=== PATIENT | female | born 1950 | race Asian ===

== ENCOUNTER 2016-10-07 20:29 | Emergency (ER) | payer MEDICARE, OTHER ==
[2016-10-07] MEDS ORDERED: ASPIRIN CHEW 81 MG TABLET PO STA (20:43)
[2016-10-07] MEDS ORDERED: ASPIRIN CHEW 81 MG TABLET ONE (20:48)
[2016-10-07] MEDS ORDERED: IOPAMIDOL-300 100 ML VIAL IVP ONE (22:29)
== END 2016-10-08 00:43 | disposition home or self-care (01) ==
DX: R07.89 Other chest pain (principal); R16.0 Hepatomegaly, not elsewhere classified; Z85.3 Personal history of malignant neoplasm of breast; I10 Essential (primary) hypertension; E78.5 Hyperlipidemia, unspecified; E11.9 Type 2 diabetes mellitus without complications; Z79.84 Long term (current) use of oral hypoglycemic drugs; Z79.82 Long term (current) use of aspirin
CPT/HCPCS: 36415; 71020; 71275; 80053; 83690; 84484; 85025; 85379; 93005; 93010; 99284; A9270; Q9967

== ENCOUNTER 2016-11-06 07:37 | Outpatient (CLI) | payer MEDICARE, OTHER ==
[2016-11-06] MEDS ORDERED: GADOBUTROL 7.5 MMOL/7.5 ML VIAL IVP ONE (08:47)
--- NOTE | 2016-11-06 09:59 | MRI Report ---
EXAM: MRI BRAIN WITHOUT AND WITH CONTRAST EXAM DATE: 11/06/2016 08:06 AM. CLINICAL HISTORY: 66-year-old woman with headaches and history of breast cancer. COMPARISON: 04/01/2008. TECHNIQUE: Multiplanar, multisequence T1-weighted and fluid-sensitive MR sequences of the brain were performed. Sequences optimized for routine evaluation. Other: None. Without and with IV Contrast: 4 c c Gadavist. FINDINGS: Parenchyma: No evidence of acute infarct on diffusion weighted sequence. The parenchyma demonstrates moderate to severe burden of nonspecific hyperdense teasing the deep cerebral and eusebia-particular whi te matter, progressed compared to the 04/01/2008 exam and most consistent with sequelae of chronic sm all vessel ischemic disease. No evidence of prior hemorrhage on susceptibility weighted sequence. No abnormal enhancement. Pituitary: Unremarkable. Ventricles and Extra-axial Spaces: Ventricles are nearly symmetric and normal in size for age. Extra- axial spaces are unremarkable. No abnormal enhancement. Orbits: Unremarkable except for bilateral lens replaced in surgery. Sinuses: Mild scattered mucosal thickening is present in the paranasal sinuses and there is a promine nt mucous retention cyst in the right maxillary sinus. Mastoid air cells are clear. Major Vascular Flow Voids: Intact. Dural Venous Sinuses and Major Central Veins: Patent on post-contrast images. IMPRESSION: 1. No acute intracranial abnormality. Specifically, no evidence of acute infarct, hemorrhage, or mass lesion. No abnormal enhancement to suggest metastatic disease. 2. Moderate to severe white matter changes, progressed compared to the 04/01/2008 exam and most consi stent with sequelae of chronic small vessel ischemic disease. [facility] Referring Provider Line: [phone] SITE ID: [id number]
== END 2016-11-06 07:38 | disposition home or self-care (01) ==
LOC: DI 07:37
PROVIDERS: ATTEND Family Medicine
DX: R51 Headache (principal); R90.89 Other abnormal findings on diagnostic imaging of central nervous system
CPT/HCPCS: 70553; A9585

== ENCOUNTER 2016-11-06 07:38 | Outpatient (CLI) | payer MEDICARE, OTHER | END 2016-11-06 07:39 | disposition home or self-care (01) | LOC: DI 07:38 | PROVIDERS: ATTEND Family Medicine | DX: K76.9 Liver disease, unspecified (principal) ==

== ENCOUNTER 2016-11-21 15:40 | Outpatient (CLI) | payer MEDICARE, OTHER ==
[2016-11-21] MEDS ORDERED: GADOBUTROL 7.5 MMOL/7.5 ML VIAL IVP ONE (16:50)
--- NOTE | 2016-11-22 15:56 | MRI Report ---
EXAM: MR ABDOMEN WITH AND WITHOUT CONTRAST (MR LIVER) EXAM DATE: 11/21/2016 04:46 PM. CLINICAL HISTORY: Neoplasm of uncertain behavior of liver, gallbladder. COMPARISON: Limited imaging of upper abdomen on chest CTA 10/07/2016. TECHNIQUE: Multiplanar breath-hold T1, T2, and DWI sequences obtained through the abdomen on an [facility] mamta. Images obtained before and after administration of 4 mL Gadavist intravenous contrast. Multiph ase postcontrast images obtained of the liver and abdomen. FINDINGS: Lung Bases: Unremarkable. Liver: Diffuse fatty liver infiltration. Posterior right liver lobe segment 6 rim-enhancing mass measuring 5.6 x 5.4 cm. Central decreased si gnal intensity on postcontrast images may be from necrosis. No fat within the mass. Along posterior-most aspect of the dominant posterior right liver lobe mass and posterior right liver lobe contour are a couple of additional adjacent lesions measuring 1.2 cm and 0.6 cm in size. These smaller lesions could be satellite liver masses or adjacent peritoneal implants along posterior right liver contour. Tiny subcapsular cyst, inferior right liver lobe. Gallbladder: 1.5 cm dependent gallstone. No gallbladder wall thickening or adjacent edema. Pancreas: No main pancreatic ductal dilatation. Tiny 3 mm cystic focus within pancreatic tail on seri es 901 image 11. Suspect sidebranch IPMN. Spleen: The spleen appears normal. Kidneys and Adrenals: The kidneys appear normal with no suspicious mass or hydronephrosis. Tiny bilat eral simple renal cysts. The adrenals appear normal. Bowel: Diverticulosis. Small hiatal hernia. Retroperitoneum: The retroperitoneal structures appear normal with no mass or lymphadenopathy. IMPRESSION: 1. A 5.6 cm indeterminate posterior right liver lobe segment 6 mass with rim enhancement. Differentia l diagnosis includes metastatic disease, primary liver tumor and hepatic adenoma. Appearance is not t ypical for FNH or hemangioma. Patient has history of breast cancer, which could be a source for liver metastasis. Of note, there are 2 significantly smaller lesions posterior to this mass that could be from satellite nodules or adjacent peritoneal implants. Recommend abdominal pelvic CT with oral and I V contrast and consider right liver lobe mass biopsy. 2. Cholelithiasis. 3. Tiny 3 mm pancreatic tail cystic focus. Suspect sidebranch IPMN. Consider one-year follow-up MRCP/ MRI. 4. Diverticulosis. [facility] Referring Provider Line: [phone] SITE ID: [id number]
== END 2016-11-21 15:41 | disposition home or self-care (01) ==
LOC: DI 15:40
PROVIDERS: ATTEND Family Medicine
DX: D37.6 Neoplasm of uncertain behavior of liver, gallbladder and bile ducts (principal); K80.20 Calculus of gallbladder without cholecystitis without obstruction; K57.30 Diverticulosis of large intestine without perforation or abscess without bleeding; K86.2 Cyst of pancreas
CPT/HCPCS: 74183; A9585

== ENCOUNTER 2017-11-27 12:00 | Outpatient (CLI) | payer MEDICARE, OTHER ==
[~2017-11-27 12:00] MED LIST: GADOBUTROL 7.5 MMOL/7.5 ML VIAL ONE
[2017-11-27] MEDS ORDERED: GADOBUTROL 7.5 MMOL/7.5 ML VIAL IVP ONE (13:33)
--- NOTE | 2017-11-27 16:10 | MRI Report ---
Procedure Date: 11/27/2017 Accession Number: [id number] / [id number] Procedure: MRI - Brain W/WO CPT Code: FULL RESULT: EXAM: MRI BRAIN WITHOUT AND WITH CONTRAST EXAM DATE: 11/27/2017 01:41 PM. CLINICAL HISTORY: 67-year-old female with history of hepatic cancer. Headache. COMPARISON: MR brain 11/06/2016 TECHNIQUE: Multiplanar, multisequence T1-weighted and fluid-sensitive MR sequences of the brain were performed. Sequences optimized for routine evaluation. Other: None. IV Contrast: 5.5 mL Gadavist . FINDINGS: Brain Volume: Moderate diffuse cerebral volume loss with ex vacuo dilatation of the ventricles and sulci, slightly advanced for age. Parenchyma: No acute hemorrhage, mass, or infarct. Extensive, semi-confluent T2/FLAIR hyperintense periventricular, deep, and subcortical white matter lesions within cerebral hemispheres bilaterally and within the win centrally. This is overall similar to the prior study. No parenchymal foci susceptibility artifact. No abnormal enhancement. Ventricles/Cisterns: Mild to moderate ex vacuo dilatation. No hydrocephalus. No abnormal extra-axial fluid collection or hemorrhage. Orbits: Status post bilateral lens replacement surgery. The visualized orbits are otherwise unremarkable. Sella Turcica: The pituitary gland, cavernous sinuses, suprasellar cistern and optic chiasm are unremarkable. IAC: Symmetric and unremarkable. Vasculature: Normal signal flow void is seen in the major arterial structures at the skull base. The dural sinuses are patent and enhance normally. Sinuses: Moderate mucous retention cyst/polyp right maxillary sinus. The remaining paranasal sinuses are clear. Bones: No focal pathologic appearing marrow signal changes. Other: None. IMPRESSION: 1. No MRI evidence of acute intracranial abnormality. Specifically, no evidence of acute or subacute infarct, acute intracranial hemorrhage, mass, midline shift, or hydrocephalus. 2. No abnormal intracranial enhancement to suggest evidence for metastatic disease. 3. Moderate diffuse cerebral volume loss with ex vacuo dilatation of the ventricles and sulci, slightly advanced for age. 4. Extensive, semi-confluent T2/FLAIR hyperintense periventricular, deep, and subcortical white matter lesions within cerebral hemispheres bilaterally and within the win centrally. This is overall similar to the prior study. While nonspecific, this is favored to represent sequela of chronic microangiopathy. [facility]
== END 2017-11-27 12:01 | disposition home or self-care (01) ==
LOC: DI 12:00
PROVIDERS: ATTEND Family Medicine
DX: R51 Headache (principal); Z85.05 Personal history of malignant neoplasm of liver
CPT/HCPCS: 70553; A9585

== ENCOUNTER 2019-01-15 | Emergency (ER) | payer MEDICARE, OTHER | END 2019-01-15 19:29 | disposition home or self-care (01) | DX: R05 Cough (principal); I10 Essential (primary) hypertension; E11.9 Type 2 diabetes mellitus without complications; Z79.84 Long term (current) use of oral hypoglycemic drugs | CPT/HCPCS: 71046; 99283; A9270 ==

== ENCOUNTER 2019-06-22 12:53 | Emergency (ER) | payer MEDICARE, OTHER ==
--- NOTE | 2019-06-22 13:18 | ED Physician Documentation ---
History of Present Illness - Stated complaint Stated Complaint: COUGH - Chief complaint Chief Complaint: Resp - Additonal information Additional information: This is a 69-year-old female with history of hepatic cancer status post resection and ablation, who presents with a cough for 3 weeks. She began developing nasal congestion and cough 3 weeks ago, her cough is been persistent and she coughs up some yellow to greenish sputum occasionally. Her breathing feels okay and she denies chest pain. She has not had any hemoptysis. No fever. She is not on any chemotherapy. 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 HEENT: Cataracts - Present Medications Home Medications: Ambulatory Orders Medication Instructions Recorded Confirmed Amlodipine Besylate 10 mg PO DAILY 04/01/13 10/07/16 Metformin HCl [Glucophage Xr] 500 mg PO BID 04/01/13 10/07/16 Telmisartan/Hydrochlorothiazid 1 each PO DAILY 04/01/13 10/07/16 [Micardis Hct 80-12.5 mg Tablet] Aspirin 1 tab PO DAILY 10/07/16 10/07/16 Benzonatate [Tessalon Perle] 100 - 200 mg PO TID PRN #30 capsule 01/15/19 Codeine Sulfate 15 mg PO Q6H PRN #12 tablet 01/15/19 Acetaminophen 650 mg PO Q6HR #30 tablet 06/22/19 Benzonatate [Tessalon Perle] 100 - 200 mg PO TID PRN #30 capsule 06/22/19 - Allergies Allergies/Adverse Reactions: Allergies Allergy/AdvReac Type Severity Reaction Status Date / Time erythromycin base Allergy Severe Hives Verified 06/22/19 13:05 [Erythromycin Base] azithromycin AdvReac Dizziness Verified 06/22/19 13:05 IV contrast Allergy Unknown Uncoded 06/22/19 13:05 - Social History Does the pt smoke?: No Smoking Status: Never smoker Does the pt drink ETOH?: No Does the pt have substance abuse?: No - Immunizations Immunizations are current?: Yes - POLST Patient has POLST: No PD ED PE NORMAL - Vitals Vital signs reviewed: Yes - General General: Alert and oriented X 3, No acute distress - HEENT HEENT: Other (Mild rhinorrhea, mild posterior pharynx erythema without edema or exudate) - Neck Neck: Supple, no meningeal sign - Cardiac Cardiac: RRR, No murmur - Respiratory Respiratory: No respiratory distress, Clear bilaterally, Other - Abdomen Abdomen: Soft, Non tender, Non distended - Derm Derm: Warm and dry - Extremities Extremities: No deformity - Neuro Neuro: Alert and oriented X 3 - Psych Psych: Normal mood, Normal affect Results - Vitals Vitals: Vital Signs - 24 hr 06/22/19 06/22/19 13:00 14:50 Temperature 37.7 C H 37.3 C Heart Rate 85 76 Respiratory 24 20 Rate Blood Pressure 161/83 H 173/90 H O2 Saturation 99 96 Oxygen O2 Source Room air - Rads (name of study) Chest XR Radiology: Other (No acute infiltrate or abnormality, possible right hilar mild adenopathy or fullness.) PD MEDICAL DECISION MAKING - ED course ED course: DDX: URI, bronchitis, pneumonia, metastasis, allergies, pleural effusion Patient is well-appearing with unremarkable vital signs oxygen saturation is normal, and overall her symptoms are consistent with upper respiratory infection, however given the presence of her cough, chest x-ray was ordered and this shows no acute pulmonary abnormality, there is a suggestion of some right hilar fullness. I reexamined patient who continues to feel well with unremarkable vital signs. I discussed that I believe she has a upper respiratory infection and I discussed supportive care for this. I do not think she will benefit from antibiotics at this time. She has no chest pain or shortness of breath to suggest cardiac cause. No signs of HF. I also reviewed her x-ray, including the fact that there is possible right hilar fullness which should be followed up with by her primary care provider or oncologist, and she may need imaging to further evlauate this. I also discussed if she has fever, shortness of breath or other concerning symptoms she should return to the emergency department. Patient agrees and was discharged home in care of her family. Departure - Departure Disposition: Home, Self Care Clinical Impression: Cough Condition: Good Instructions: ED Viral Syndrome Prescriptions: Acetaminophen 650 mg PO Q6HR #30 tablet Benzonatate [Tessalon Perle] 100 - 200 mg PO TID PRN #30 capsule PRN Reason: Cough Comments: You were seen today for cough. This is likely a viral illness/viral bronchitis, I am prescribing you Tessalon Perles for the cough. Your x-ray showed potential mild enlargement of your hilum of your heart, which is likely unrelated to your cough, but please follow-up with your primary care provider and your oncologist to determine if further imaging is necessary. If you are developing worsening symptoms such as difficulty breathing, coughing up blood, chest pain, please return to the emergency department. Discharge Date/Time: 06/22/19 14:58
--- NOTE | 2019-06-22 14:18 | XRAY Report ---
Reason: cough x 3 weeks Procedure Date: 06/22/2019 Accession Number: [id number] / [id number] Procedure: XR - Chest 2 View X-Ray CPT Code: 12750 Final Report FULL RESULT: EXAM: CHEST RADIOGRAPHY EXAM DATE: 06/22/2019 01:46 PM. CLINICAL HISTORY: Cough x 3 weeks. COMPARISON: CHEST 2 VIEW 01/15/2019 6:47 PM CHEST ANGIO 10/07/2016 10:28 PM. TECHNIQUE: 2 views. FINDINGS: Lungs/Pleura: No focal opacities evident. No pleural effusion. No pneumothorax. Normal volumes. Mediastinum: Ectatic thoracic aorta. Atheromatous disease is noted in the thoracic aorta. No cardiac enlargement. Possible mild prominence of the right hilum. Other: Postoperative changes are seen in the right upper quadrant of the abdomen. IMPRESSION: 1. No cardiac enlargement. Possible mild right hilar enlargement. Findings could be confirmed with CT with contrast to exclude adenopathy. 2. No acute pulmonary process. [facility]
[2019-06-22 14:51] VITALS: BP 173/90
== END 2019-06-22 14:58 | disposition home or self-care (01) ==
LOC: ED 12:53
DX: R05 Cough (principal); I10 Essential (primary) hypertension; E11.9 Type 2 diabetes mellitus without complications; Z79.84 Long term (current) use of oral hypoglycemic drugs
CPT/HCPCS: 71046; 99283

== ENCOUNTER 2019-07-17 17:07 | Emergency (ER) | payer MEDICARE, OTHER ==
--- NOTE | 2019-07-17 17:37 | ED Physician Documentation ---
PD HPI URI - Stated complaint Stated Complaint: COUGH/PFLEGM - Chief complaint Chief Complaint: Resp - History obtained from History obtained from: Patient - History of Present Illness Timing - onset: How many weeks ago (3) Timing duration: Weeks (3) Timing details: Gradual onset, Still present Associated symptoms: Sinus pain, Dry cough, Dyspnea. No: Fever, Nasal congestion, Rhinorrhea, Chest pain, Bilateral edema Contributing factors: No: Sick contact, COPD / asthma Recently seen: Clinic, Emergency Dept (Was prescribed Tessalon for the cough initially early on in the course of this. She then was seen in the office and had steroid dosing for 5 days with some improvement but not persistent or consistent. The symptoms are back again.) Review of Systems Constitutional: reports: Myalgias, Fatigue. denies: Fever, Chills Nose: reports: Sinus pressure / pain. denies: Rhinorrhea / runny nose, Congestion Throat: denies: Sore throat Respiratory: reports: Dyspnea, Cough, Wheezing GI: denies: Nausea, Vomiting, Diarrhea Musculoskeletal: denies: Neck pain, Back pain, Extremity swelling Neurologic: denies: Near syncope, Altered mental status PD PAST MEDICAL HISTORY - Past Medical History Past Medical History: Yes Cardiovascular: Hypertension, High cholesterol Respiratory: None Endocrine/Autoimmune: Type 2 diabetes GI: Other : None Psych: None Musculoskeletal: None Derm: None Other Past Medical History: liver cancer - Past Surgical History Past Surgical History: Yes 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 HEENT: Cataracts - Present Medications Home Medications: Ambulatory Orders Medication Instructions Recorded Confirmed Amlodipine Besylate 10 mg PO DAILY 04/01/13 10/07/16 Telmisartan/Hydrochlorothiazid 1 each PO DAILY 04/01/13 10/07/16 [Micardis Hct 80-12.5 mg Tablet] Aspirin 1 tab PO DAILY 10/07/16 10/07/16 Acetaminophen 650 mg PO Q6HR #30 tablet 06/22/19 Albuterol Sulfate [Albuterol 2 puffs IH QID #1 hfa.aer.ad 07/17/19 Sulfate Hfa] Doxycycline Monohydrate 100 mg PO BID #14 tablet 07/17/19 Latanoprost [Xalatan] 2.5 ml OP 07/17/19 dexAMETHasone [Decadron] 4 mg PO DAILY #5 tablet 07/17/19 guaiFENesin/CODEINE [Robitussin AC] 10 ml PO Q6H PRN #240 ml 07/17/19 - Allergies Allergies/Adverse Reactions: Allergies Allergy/AdvReac Type Severity Reaction Status Date / Time erythromycin base Allergy Severe Hives Verified 06/22/19 13:05 [Erythromycin Base] azithromycin AdvReac Dizziness Verified 06/22/19 13:05 IV contrast Allergy Unknown Uncoded 06/22/19 13:05 - Social History Does the pt smoke?: No Smoking Status: Never smoker Does the pt drink ETOH?: No Does the pt have substance abuse?: No - Immunizations Immunizations are current?: Yes - POLST Patient has POLST: No PD ED PE NORMAL - Vitals Vital signs reviewed: Yes - General General: Alert and oriented X 3, No acute distress, Well developed/nourished - HEENT HEENT: Moist mucous membranes, Pharynx benign - Neck Neck: Supple, no meningeal sign, No adenopathy - Cardiac Cardiac: RRR, No murmur - Respiratory Respiratory: No: Clear bilaterally (diminished sounds with scattered exp wheezes. ) - Abdomen Abdomen: Soft, Non tender - Derm Derm: Normal color, Warm and dry Results - Vitals Vitals: Vital Signs - 24 hr 07/17/19 07/17/19 07/17/19 17:19 18:18 19:01 Temperature 37.6 C H Heart Rate 88 90 97 Respiratory 18 16 18 Rate Blood Pressure 151/102 H 170/79 H O2 Saturation 94 94 Oxygen O2 Source Room air - Rads (name of study) chest xray Radiology: Prelim report reviewed (no infiltates), See rad report PD MEDICAL DECISION MAKING - ED course Complexity details: considered differential (Persistent cough for a few weeks now despite Tessalon and steroid. At this point consider bacterial cause instead and can do combination of steroid antibiotic inhaler and cough syrup.), d/w patient Departure - Departure Disposition: 01 Home, Self Care Clinical Impression: Persistent cough Upper respiratory tract infection Qualifiers: URI type: unspecified URI Qualified Code(s): J06.9 - Acute upper respiratory infection, unspecified Condition: Stable Record reviewed to determine appropriate education?: Yes Instructions: ED Upper Resp Infec Abx Tx Prescriptions: Albuterol Sulfate [Albuterol Sulfate Hfa] 2 puffs IH QID #1 hfa.aer.ad dexAMETHasone [Decadron] 4 mg PO DAILY #5 tablet Doxycycline Monohydrate 100 mg PO BID #14 tablet guaiFENesin/CODEINE [Robitussin AC] 10 ml PO Q6H PRN #240 ml PRN Reason: Cough Comments: Stay well-hydrated. Continue usual medications. Use the albuterol inhaler 2 puffs 4 times a day for the next 7 to 10 days to help open the airways and improve breathing and reduce cough. Decadron steroid at just a single tablet daily for 5 more days. Use the codeine cough medicine if needed for cough at night particularly and through the day as needed as well. At this point given the duration of the cough and symptoms, I would consider the possibility of bacterial infection rather than just viral and we can add an antibiotic to see if that helps in combination with the above medicines. Recheck if not improving well over the next 3 to 4 days. Discharge Date/Time: 07/17/19 19:01
[2019-07-17] MEDS ORDERED: ALBUTEROL NEB 2.5 MG/3 ML INH STA (17:54)
[2019-07-17] MEDS ORDERED: CHERRY SYRUP 10 ML UDC PO ONE (17:55)
[2019-07-17] MEDS ORDERED: DEXAMETHASONE 10 MG/ML VIAL PO STA (17:55)
[2019-07-17] MEDS ORDERED: DOXYCYCLINE 100 MG TABLET PO STA (17:55)
[2019-07-17] MEDS ORDERED: guaiFENesin/CODEINE 5 ML UDC PO STA (17:55)
--- NOTE | 2019-07-17 18:49 | XRAY Report ---
Reason: dyspnea/ cough Procedure Date: 07/17/2019 Accession Number: [id number] / [id number] Procedure: XR - Chest 2 View X-Ray CPT Code: 01333 Final Report FULL RESULT: EXAM: CHEST RADIOGRAPHY EXAM DATE: 07/17/2019 06:09 PM. CLINICAL HISTORY: Dyspnea/ cough. COMPARISON: CHEST 2 VIEW 06/22/2019 1:45 PM. TECHNIQUE: 2 views. FINDINGS: Lungs/Pleura: No focal opacities evident. No pleural effusion. No pneumothorax. Normal volumes. Mediastinum: The heart size is normal. There is moderate tortuosity of the thoracic aorta. Trachea is midline. Other: None. IMPRESSION: Clear lungs. Tortuous aorta. [facility]
[2019-07-17 19:02] VITALS: BP 170/79
== END 2019-07-17 19:01 | disposition home or self-care (01) ==
LOC: ED 17:07
DX: J06.9 Acute upper respiratory infection, unspecified (principal); R05 Cough; I10 Essential (primary) hypertension; E11.9 Type 2 diabetes mellitus without complications; Z79.82 Long term (current) use of aspirin
CPT/HCPCS: 71046; 94640; 99283; 99284; A9270

== ENCOUNTER 2020-04-22 13:08 | Outpatient (CLI) | payer MEDICARE, OTHER ==
[2020-04-22 13:19] LABS: BILIRUBIN,URINE NEGATIVE (NEGATIVE); GLUCOSE, URINE (UA) NEGATIVE (NEGATIVE); KETONES,URINE (UA) NEGATIVE (NEGATIVE); LEUKOCYTE ESTERASE, URINE MODERATE (NEGATIVE); NITRITE,URINE NEGATIVE (NEGATIVE); OCCULT BLOOD,URINE LARGE (NEGATIVE); PH,URINE 6.5 PH (5.0-7.5); PROTEIN,URINE TRACE mg/dL (NEGATIVE); UROBILINOGEN,URINE 0.2 (NORMAL) E.U./dL (NORMAL)
[2020-04-22 13:20] LABS: CLARITY,URINE CLEAR (CLEAR)
[2020-04-22 13:25] LABS: SQUAMOUS EPITHELIAL CELL,UR FEW Squamous (<= Few)
[2020-04-22 13:26] LABS: BACTERIA,URINE Few /HPF (None Seen)
== END 2020-04-22 13:09 | disposition home or self-care (01) ==
LOC: LAB 13:08
PROVIDERS: ATTEND Urology
DX: R30.0 Dysuria (principal)
CPT/HCPCS: 81001; 87086

== ENCOUNTER 2020-06-29 13:00 | Outpatient (CLI) | payer MEDICARE, OTHER ==
--- NOTE | 2020-06-29 18:10 | CONSULTATION NOTE ---
Palliative Care Consultation - Referral Referring Provider: Dr. Nolvia Reid Time of Visit: [id number] Referral setting: Home Referral Reason: Met uterine sarcoma/hepatocellular CA/FTT - Information Sources Records reviewed: Previous records reviewed History/Review of Systems obtained from: Patient, Family ( Neptali and daughter Ena present for visit) Exam limitations: No limitations - History of Present Illness Brief History of Present Illness: This is a klaus 70-year-old woman with known metastatic uterine sarcoma, as well as progressive hepatocellular carcinoma, history of breast cancer, who was most recently discharged from the [facility]. Patient does have a known diagnosis of hepatocellular carcinoma which was treated originally with laparoscopic partial right hip ectomy and radiofrequency ablation in 2016, but was found to have recurrent disease in 2019 as well as a large 11.6 cm uterine mass. She received atezolizumab for her metastatic HCC, and surgical intervention in which included a exploratory lap, modified radical hysterectomy, BSO, radical right pelvic dissection, tumor cytoreduction, and right utero neocystostomy. She had a difficult postop course, with recurrent UTIs, progressive functional decline, and eventually found to have progression of her disease in the pelvis as well as metastatic disease to her lungs. Patient received her first dose of chemotherapy, on 06/08. She did experience severe side effects, including fever, sore throat, fatigue, and mucositis. She was admitted for neutropenic fever in the setting of failure to thrive on 06/17. Patient found this quite a distressful hospitalization, given the pandemic, was not allowed to have her family with her, she had severe pain related to mucositis, she continued to deteriorate functionally, and was unable to eat. She was discharged home, there had been questions regarding goals of care. She had met with the palliative care team, they had introduced the concept of hospice, as well as the information most likely her treatment would only extend her prognosis about 3 months. Patient is found this quite a distressful experience, and her goals that she expressed several times through our visit, which she wanted to be at home with her family, understand she has stage IV disease, and no further treatment. She has continued to improve, she is able to ambulate short distances, though still continues with severe fatigue. She reports she is about "20%" better, she has been eating and drinking some, her pain has resolved. Her mucositis she only has 1 residual lesion on the underside of her right tongue, that does appear to be healing. 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: Breast cancer (tx with masectomy and tamoxifen) : reports: None Psych: reports: None Musculoskeletal: reports: None Derm: reports: None MRSA Hx?: No - Past Surgical History General: reports: Liver surgery /ELECTRICAL TRANSMISSION ENGINEER: reports: Hysterectomy, Oophrectomy, Mastectomy, Other (04/12/20 ex lap modified rad hyst, BSO; right pelvic dissection; ureteronecocystotomy; 06/06 progressive pelvic dx with pulmonary nodules) HEENT: reports: Cataracts Social History - Living Situation Living arrangement: At home Living Situation: With spouse/s.o., With family (Patient and family are Buddhist, her dinesh is very important to her. Though has not had access to it given the pandemic. She and her live in [place], she moved to [facility] in [facility] to [place] where her was originally stationed. She is originally from the [facility].) Support System: Her daughter Ena who is participating in the appointment, has been living with them since March with her since her surgery. She is helped advocate and manage for her mom's care needs, as well as help interpret a lot of the medical information. She is well versed in patient's history as well as patient's appointment/conversations, options. They also have a son, who is in [place], they have found it quite difficult with the pandemic as he is not been able to come visit. Family History - Family History Family History: Mother: , Hypertension, Father: , Hypertension, Other family: Alive and Well (many siblings no cancer) Medications/Allergies - Medications Home Medications: Ambulatory Orders Medication Instructions Recorded Confirmed Amlodipine Besylate 10 mg PO DAILY 04/01/13 07/01/20 Telmisartan/Hydrochlorothiazid 1 each PO DAILY 04/01/13 07/01/20 [Micardis Hct 80-12.5 mg Tablet] Acetaminophen 650 mg PO Q6HR #30 tablet 06/22/19 07/01/20 Albuterol Sulfate [Albuterol 2 puffs IH QID #1 hfa.aer.ad 07/17/19 07/01/20 Sulfate Hfa] Latanoprost [Xalatan] 2.5 ml OP DAILY 07/17/19 07/01/20 Sitagliptin Phosphate [Januvia] 50 mg PO DAILY 07/01/20 07/01/20 - Allergies Allergies/Adverse Reactions: Allergies Allergy/AdvReac Type Severity Reaction Status Date / Time erythromycin base Allergy Severe Hives Verified 06/22/19 13:05 [Erythromycin Base] azithromycin AdvReac Dizziness Verified 06/22/19 13:05 IV contrast Allergy Unknown Uncoded 06/22/19 13:05 Review of Systems - Constitutional Constitutional: reports: Fatigue (continues persistent but slowly improving), Poor appetite, Weight loss (had been at baseline about 120; now 92) - Ears, Nose & Throat Ears, Nose & Throat: reports: Mouth lesions (healing) - Cardiovascular Cardiovascular: reports: Decr. exercise tolerance - Respiratory Respiratory: reports: SOB with exertion. denies: SOB at rest - Gastrointestinal Gastrointestinal: reports: Early satiety. denies: Abdominal pain, Constipation, Nausea - Genitourinary Genitourinary: denies: Dysuria - Musculoskeletal Musculoskeletal: reports: Stiffness, Muscle weakness - Integumentary Integumentary: reports: Dryness - Neurological Neurological: reports: General weakness - Psychiatric Psychiatric: reports: Depression (expressing appropriate sadness/grief of current situation; does not present with hopelessness/helplessness) - Endocrine Endocrine: reports: Diabetes type 2 (does not check BS) - Hematologic/Lymphatic Hematologic/Lymph: Recurrent infections (hx of UTIs) - All Other Systems All Other Systems: reports: Reviewed and negative Physical Exam - Vital Signs Pulse Rate: 106 Respiratory Rate: 16 O2 Saturation: 97 (ra @ rest) Blood Pressure: 102/62 - Physical Exam General Appearance: positive: No acute distress, Alert Eyes Bilateral: positive: Normal inspection ENT: positive: Oral lesions (healing lesion underside right tongue; no candidiasis) Neck: positive: Trachea midline Cardiovascular: positive: Regular rate & rhythm Respiratory: positive: No respiratory distress, Breath sounds nml, Diminished in bases Abdomen: positive: Non-tender, Soft, Nml bowel sounds Skin: positive: Dryness Extremities: positive: No pedal edema Neurologic/Psychiatric: positive: Oriented x3, Mood/affect nml, Weakness Palliative Care - POLST Patient has POLST: Yes POLST Status: DNR, Selective Treatment (completed at visit) Pain: No pain, Pain improved, Location (has been left lower quadrant; resolved after tx in Dec) Tiredness/Fatigue: Moderate (4-6) Drowsiness/Sedation: Moderate (4-6) Nausea: None Anorexia: Moderate (4-6), Weight loss Dyspnea: Mild (1-3) Depression: Mild (1-3) Anxiety: Mild (1-3) Feelings of wellbeing/Perceived Quality of Life: Fair, Acceptable Sleep: Sleep improved, Variable sleep pattern Constipation: No Performance Status: Patient is ambulatory for short distances, her does help her with bathing. She is able to self feed. I would put her at a PPS of 60% - Palliative Care Discussion: Family meeting regarding goals of care. This is a long and extensive that involved multiple layers of communication. Patient expresses her desire to not return to the hospital, just to be at home with her family. No further treatment. She does understand she has stage IV disease, and that she would continue to decline and would lead to her end-of-life. Patient did have a misunderstanding regarding hospice, had understood it was a "place". After much discussion regarding the layer of support hospice provides, she would be open to this. She was very overwhelmed by her hospitalization, and not being able to be present with her family, does not want to return to the hospital. Her Neptali, does express many layers of suffering. He very much wants her to continue treatment, his perception is her pain got better, and that she was just sick because of the chemo. He does not want to give up, though does understand that his 's wishes are to be at home and focus on comfort with him. He is willing to be supportive, but finds this all very difficult emotionally. Their daughter Ena, his been a good advocate, very much wants to align with her mother's focus for quality of life, though is still ambivalent regarding if there were further treatments that could be modified that she could tolerate, she does find hospice difficult, in the context she is often going to the ER for symptom management. We discussed this would be of great support for her to have the hospice team to be able to help manage some of the symptoms, and avoid hospitalization/ED. She does feel if patient is feeling better, it may warrant another conversation. We did fill out the POLST. Patient is consistent with her wishes for DN AR, after much discussion, did pick selective treatments, as patient/family would like after much discussion follow-up with Dr. Reid. Educated on the role of palliative care which could come continue if she wanted to do further palliative treatments, though recognizing again sometimes the treatment causes more burden than benefit, but they may feel more at rest in their decision having had another conversation now she is not hospitalized. Impression and Recommendations - Palliative Care Impression: This is a 70-year-old woman who has had a series of unfortunate events over the few months, she presented with recurrent hepatocellular carcinoma, with now rec urrent uterine sarcoma. She has had a recent hospitalization for acute neutropenia and mucositis. She is recovering some, with some improvement in functional status, remains quite cachectic, but is doing better with intake. She does not present with high symptom burden, but there is still significant concerns regarding defining goals of care. Palliative care providing support for symptom management, clarification of goals, and transition to hospice when appropriate. Recommendations/Counseling Done: 1. Mucositis. Patient presents with almost resolution of her mucositis, still has residual lesion. Reinforced their current practice of doing a normal saline/baking soda rinse, patient does not have any pain at this point in time, does not need further than Magic mouthwash. 2. Weight loss. Patient is doing better with her intake, encouraged to increase her Ensure if possible from 2-3 times a day. They are providing small frequent meals, patient does feel like she is doing better with this. We will continue to monitor. At this point in time patient is not on appetite stimulant. Will monitor for appropriateness. 3. Recurrent uterine sarcoma. Patient tolerated first round of doxorubicin with significant side effects, and hospitalization. Patient is somewhat treatment adverse at this point in time, counseling provided regarding weighing benefits and burdens of treatments in the context of quality/quantity of life. In agreement end of conversation, would benefit from further follow-up and conversation with Dr. Reid. Reached out for follow-up appointment, Dr. Reid will follow up and family court counsellor with family. 4. Advanced care planning. Counseling provided regarding hospice services, clarifications or understanding regarding what this would include. Provided daughter with "hard choices for loving people", she does struggle in the context of patient's future end-of-life and demise. is emotionally distraught, did offer medical palliative care social security assessor and/or medical radiation therapist, declined for this time. Will follow up after appointment with oncology, for further definition of goals, if focuses on comfort, would benefit from hospice support and transition earlier than later. Time Spent: 90 minutes with greater than 50% of this done in counseling regarding symptom management, anticipatory guidance, completion of the POLST, coordination of care with oncology team.
--- OUTSIDE RECORDS SUMMARY | 2020-06-30 04:53 | EXTERNAL MEDICAL SUMMARY RPT | Continuity of Care Document ---
:1950 Demographics Phone Unavailable Preferred Language Unknown Marital Status Unknown Rastafari Affiliation Unknown Race Unknown Ethnic Group Unknown Author Organization Kim Address [address] [phone] Phone Care Team Providers Name Role Phone SONE Unavailable Unavailable Weiss Unavailable Unavailable Problems date description facility 2013-04-02 08:45 DIAB STORM WO COMPL, TYPE II OR [facility] UNSPEC TYPE, NOT UNCNTRLD 2013-04-02 08:45 SENILE CATARACT NOS [facility] 2013-04-02 08:45 HYPERTENSION NOS [facility] 2013-04-02 08:45 HX OF BREAST MALIGNANCY [facility] 2013-04-02 08:[address] [facility] 2013-04-23 09:18 SENILE CATARACT NOS [facility] 2013-04-23 09:18 HX-ANTIBIOT ALLERGY NEC [facility] 2015-12-23 13:30 TYPE 2 DIABETES MELLITUS WITH [facility] HYPERGLYCEMIA 2015-12-23 13:30 HYPOKALEMIA [facility] 2015-12-23 13:30 ESSENTIAL (PRIMARY) HYPERTENSION [facility] 2015-12-23 13:30 OTHER CHEST PAIN [facility] 2015-12-23 13:30 ABNORMAL ELECTROCARDIOGRAM [ECG] [facility] [EKG] 2015-12-23 13:30 UNDERDOSING OF INSULIN AND ORAL [facility] HYPOGLYCEMIC DRUGS, INIT 2015-12-23 13:30 SALES OPERATIONS COORDINATOR (CURRENT) USE OF ASPIRIN [facility] 2015-12-23 13:30 OTHER SALES OPERATIONS COORDINATOR (CURRENT) DRUG [facility] THERAPY 2015-12-23 13:30 PERSONAL HISTORY OF MALIGNANT [facility] NEOPLASM OF BREAST 2015-12-23 13:30 ACQUIRED ABSENCE OF LEFT BREAST [facility] AND NIPPLE 2015-12-23 13:30 PATIENT'S INTENTL UNDRDOSE OF MEDS [facility] REGIMEN FOR OTH REASON 2016-02-03 06:43 TYPE [address] [facility] COMPLICATIONS 2016-02-03 06:43 HYPERLIPIDEMIA, UNSPECIFIED [facility] 2016-02-03 06:43 ESSENTIAL (PRIMARY) HYPERTENSION [facility] 2016-02-03 06:43 OTHER CHEST PAIN [facility] 2016-10-07 20:29 TYPE 2 DIABETES [address] WITHOUT [facility] COMPLICATIONS 2016-10-07 20:29 HYPERLIPIDEMIA, UNSPECIFIED [facility] 2016-10-07 20:29 ESSENTIAL (PRIMARY) HYPERTENSION [facility] 2016-10-07 20:29 OTHER CHEST PAIN [facility] 2016-10-07 20:29 HEPATOMEGALY, NOT ELSEWHERE [facility] CLASSIFIED 2016-10-07 20:29 SALES OPERATIONS COORDINATOR (CURRENT) USE OF ASPIRIN [facility] 2016-10-07 20:29 SALES OPERATIONS COORDINATOR (CURRENT) USE OF ORAL [facility] HYPOGLYCEMIC DRUGS 2016-10-07 20:29 PERSONAL HISTORY OF MALIGNANT [facility] NEOPLASM OF BREAST 2016-11-06 07:37 HEADACHE [facility] 2016-11-06 07:37 OTH ABNORMAL FINDINGS ON [facility] DIAGNOSTIC IMAGING OF CNSL 2016-11-06 07:38 LIVER DISEASE, UNSPECIFIED [facility] 2016-11-21 15:40 NEOPLASM OF UNCERTAIN BEHAVIOR OF [facility] LIVER, GB BILE DUCT 2016-11-21 15:40 DVRTCLOS OF LG INT W/O PERFORATION [facility] OR ABSCESS W/O BLEEDING 2016-11-21 15:40 CALCULUS OF GALLBLADDER W/O [facility] CHOLECYSTITIS W/O OBSTRUCTION 2016-11-21 15:40 CYST OF PANCREAS [facility] 2017-11-27 12:00 HEADACHE [facility] 2017-11-27 12:00 PERSONAL HISTORY OF MALIGNANT [facility] NEOPLASM OF LIVER 2019-01-15 18:02 TYPE [address] DIABET[address] [facility] COMPLICATIONS 2019-01-15 18:02 ESSENTIAL (PRIMARY) HYPERTENSION [facility] 2019-01-15 18:02 COUGH [facility] [place] 2019-01-15 18:02 MCC (CURRENT) USE OF ORAL [facility] HYPOGLYCEMIC DRUGS 2019-06-22 12:53 TYPE 2 DIABETES MELLITUS WITHOUT [facility] COMPLICATIONS 2019-06-22 12:53 ESSENTIAL (PRIMARY) HYPERTENSION [facility] 2019-06-22 12:53 COUGH [facility] Medic [facility] 2019-06-22 12:53 SALES OPERATIONS COORDINATOR (CURRENT) USE OF ORAL [facility] HYPOGLYCEMIC DRUGS 2019-07-17 17:07 TYPE 2 DIABETES MELLITUS WITHOUT [facility] COMPLICATIONS 2019-07-17 17:07 ESSENTIAL (PRIMARY) HYPERTENSION [facility] 2019-07-17 17:07 ACUTE UPPER RESPIRATORY INFECTION, [facility] UNSPECIFIED 2019-07-17 17:07 COUGH [facility] 2019-07-17 17:07 SALES OPERATIONS COORDINATOR (CURRENT) USE OF ASPIRIN [facility] 2020-04-12 05:07 Malignant neoplasm of endometrium [facility] 2020-04-22 13:08 DYSURIA [facility] Medic [facility] Allergies date description facility [facility] LISINOPRIL [facility] LOSARTAN [facility] [place] SULFAMETHOXAZOLE-TRIMETHOPRIM [facility] VANCOMYCIN [facility] [place] HYDROCODONE-ACETAMINOPHEN [facility] CODEINE-GUAIFENESIN [facility]IN [facility] MOR[facility]INE [facility] No Known Drug Allergies [facility] Results test status date ordered by attending specimen nate e null P 2020-04-22 OT MATT RODRIGUEZ 2020-04 13:18:00 13:18:00 null F 2020-04-22 OT MATT RODRIGUEZ 2020-04 13:18:00 13:18:00 null F 2020-04-22 OT MATT RODRIGUEZ 2020-04 13:18:00 13:18:00 null F 2020-04-22 OTH MATT RODRIGUEZ 2019- 13:18:00 13:18:00 null F 2020-04-22 OTH Other Provider 2019- 13:18:00 13:18:00 null F 2020-04-22 OTH Other Provider [id number] 13:18:00 13:18:00 null F 2020-04-22 OTH Other Provider 2020-04 13:18:00 13:18:00 null F 2020-04-22 OTH Other Provider 2019- 13:18:00 13:18:00 null F 2020-04-22 OTH Other Provider 2019- -05 13:18:00 13:18:00 null F 2020-04-22 OTH Other Provider 2019- 13:18:00 13:18:00 null F 2020-04-22 OTH Other Provider 2019-05 13:18:00 13:18:00 null F 2020-04-22 OTH Other Provider 2020-04 13:18:00 13:18:00 null F 2020-04-22 OTH Other Provider 2019-05 13:18:00 13:18:00 null F 2020-04-22 OTH Other Provider 2019- -05 13:18:00 13:18:00 null F 2020-04-22 OTH Other Provider 2019- -05 13:18:00 13:18:00 null F 2020-04-22 OTH Other Provider 2019-05 13:18:00 13:18:00 null F 2020-04-22 OTH Other Provider 2019-05 13:18:00 13:18:00 null F 2020-04-22 OTH Other Provider 2019-05 13:18:00 13:18:00 null F 2020-04-22 OTH Other Provider 2019- -05 13:18:00 13:18:00 null F 2020-04-22 OTH Other Provider 2019- -05 13:18:00 13:18:00 null F 2020-04-22 OTH Other Provider 2019- -05 13:18:00 13:18:00 facility observation status value reference units lab abnor mal line range code notes [facility][CXP^CULTUR E IN PROGRESS. RESULTS TO FOLLOW.] [facility] F [facility] unknown [facility] te[LPOLY^LESS THAN 10,000 COLONIES/ML polymicrobial growth including] [facility] F [facility] unknown Medical Center ite[LPOLY^cont amination.] [facility] F [facility] te[LPOLY^poten tial pathogens. This is suggestive of skin or other] [facility] F Few None Seen /HPF Medical [facility] F NEGATIVE NEGATIVE Medical [facility] F CLEAR CLEAR Medical [facility] F LIGHT YELLOW unknown URINE Medical Center R ANDOM [facility] F INDICATED unknown Medical [facility] F NEGATIVE NEGATIVE mg/dL Medical [facility] F NEGATIVE NEGATIVE mg/dL Medical [facility] F MODERATE NEGATIVE A Medical [facility] F NEGATIVE NEGATIVE Medical [facility] F LARGE NEGATIVE A Medical [facility] F 6.5 5.0-7.5 PH Medical [facility] F TRACE NEGATIVE mg/dL Medical [facility] 11-25 0-5 /HPF A [facility] F 1.010 1.002-1.0 Medical Center 30 [facility] F FEW [facility] <= Few [facility] F 0.2 (NORMAL) NORMAL [facility] dL [facility] F 6-10 0-5 /HPF A Medical Center Social History date description facility [id number]
== END 2020-06-29 13:01 | disposition home or self-care (01) ==
LOC: PC 13:00
PROVIDERS: ATTEND Nurse Practitioner Adult Health
DX: Z51.5 Encounter for palliative care (principal); K12.31 Oral mucositis (ulcerative) due to antineoplastic therapy; T45.1X5A Adverse effect of antineoplastic and immunosuppressive drugs, initial encounter; R63.4 Abnormal weight loss; C55 Malignant neoplasm of uterus, part unspecified; C22.0 Liver cell carcinoma; E11.9 Type 2 diabetes mellitus without complications; Z79.84 Long term (current) use of oral hypoglycemic drugs; Z79.899 Other long term (current) drug therapy; Z66 Do not resuscitate
CPT/HCPCS: 99345

== ENCOUNTER 2020-07-13 14:00 | Outpatient (CLI) | payer MEDICARE, OTHER ==
--- NOTE | 2020-07-13 17:37 | CONSULTATION NOTE ---
Palliative Care Follow Up - Referral Referring Provider: Dr. Angela Reid Time of Visit: [id number] Referral setting: Home Referral Reason: Met Uterine Ca/Stage IV Hepatocellular CA - Information Sources Records reviewed: Previous records reviewed History/Review of Systems obtained from: Patient, Family ( Neptali and daughter Ena present) Exam limitations: No limitations - History of Present Illness Update Brief HPI Update: This is a klaus gentle 70-year-old woman with known metastatic uterine sarcoma, as well as progressive hepatocellular carcinoma stage IV, history of breast cancer, whom I met after discharge from [facility] after acute side effects from her chemotherapy on 06/08 when she received her first dose of chemotherapy of Doxil rib is seen. Unfortunately she ended up with neutropenic fever, UTI and severe mucositis. She had found this a very negative experience, and given the pandemic was not allowed to see her family and was discharged home with considering hospice care. She has since spoken with her oncologist, continues to struggle, but had spoken to her about starting pazopanib. This is an oral VEGF antagonist, she is very much concerned about her quality of life and recurrent side effects. Patient looks absolutely fabulous today compared to our first meeting. She is up, voice is strong, she is ambulating without any hesitancy. She says she can walk up almost to a mile, but still needs some support. Her energy fluctuates, but she is eating and drinking, her mucositis has resolved, she denies any abdominal pain. She is very much enjoyed her time with her family, but does understand with no further treatment, she would be continuing to decline as a result of her cancer. On examination patient does have very tender palpable mass that extends about 3 to 4 cm below her right rib cage mid line extending over to the left 2 cm of her sternum. Appears continuous, most likely assumption is may be her liver mass. She reports this has grown in size, and tenderness. Only uncomfortable with palpation. Patient's last treatment for her hepatocellular carcinoma was 05/25 with atezolizumab and bevacizumab. They present with many concerns about toxicities, new treatment, worried about not treating the hepatocellular carcinoma, and how this all falls together. They are struggling with her current quality of life, and their past experience with toxicities from her chemotherapy. Past Medical History: Hypertension, hypercholesteremia, diabetes type 2, cirrhosis nonalcoholic fatty liver disease, history of hep B, history of hepatocellular cancer; History of partial right hepatic ectomy and radiofrequency ablation; recurrent/progressive disease 2019; Breast cancer treated with mastectomy and tamoxifen, 04/12 modified radical hysterectomy BSO right pelvic dissection, ureter neck to cystostomy, pulmonary nodules, cataracts Social History - Living Situation Living arrangement: At home Living Situation: With spouse/s.o., With family (Patient and family are Rastafari, her dinesh is very important to her. Though has not had access to it given the pandemic. She and her live in [place], she moved to [facility] in 1978 to [place] where her was originally stationed. She is originally from the [facility].) Support System: Her daughter Ena, has been staying with him since March. She has been advocating and helping follow-up on mother's medical appointments. Medications/Allergies - Medications Home Medications: Ambulatory Orders Medication Instructions Recorded Confirmed Amlodipine Besylate 10 mg PO DAILY 04/01/13 07/01/20 Telmisartan/Hydrochlorothiazid 1 each PO DAILY 04/01/13 07/01/20 [Micardis Hct 80-12.5 mg Tablet] Acetaminophen 650 mg PO Q6HR #30 tablet 06/22/19 07/01/20 Albuterol Sulfate [Albuterol 2 puffs IH QID #1 hfa.aer.ad 07/17/19 07/01/20 Sulfate Hfa] Latanoprost [Xalatan] 2.5 ml OP DAILY 07/17/19 07/01/20 Sitagliptin Phosphate [Januvia] 50 mg PO DAILY 07/01/20 07/01/20 - Allergies Allergies/Adverse Reactions: Allergies Allergy/AdvReac Type Severity Reaction Status Date / Time erythromycin base Allergy Severe Hives Verified 06/22/19 13:05 [Erythromycin Base] azithromycin AdvReac Dizziness Verified 06/22/19 13:05 IV contrast Allergy Unknown Uncoded 06/22/19 13:05 Review of Systems - Constitutional Constitutional: reports: Fatigue (improving), Weight loss (had been at baseline about 120; now 93 has gained one pound) - Ears, Nose & Throat Ears, Nose & Throat: denies: Mouth lesions (resolved) - Respiratory Respiratory: reports: SOB with exertion. denies: SOB at rest - Gastrointestinal Gastrointestinal: reports: Good appetite (is doing a lot of the cooking). denies: Abdominal pain, Constipation, Nausea - Genitourinary Genitourinary: denies: Dysuria - Musculoskeletal Musculoskeletal: reports: Muscle weakness (almost back to baseline; able to walk almost a mile) - Integumentary Integumentary: reports: Dryness, Hair changes (alopecia from chemo) - Neurological Neurological: reports: General weakness - Psychiatric Psychiatric: reports: Depression (expressing appropriate sadness/grief of current situation; does not present with hopelessness/helplessness) - Endocrine Endocrine: reports: Diabetes type 2 (does not check BS) - All Other Systems All Other Systems: reports: Reviewed and negative Physical Exam - Vital Signs Temperature: 97.3 C Pulse Rate: 83 Respiratory Rate: 18 O2 Saturation: 100 (ra @ rest) Blood Pressure: 124/64 - Physical Exam General Appearance: positive: No acute distress, Alert Eyes Bilateral: positive: Normal inspection ENT: negative: Oral lesions Neck: positive: Trachea midline Cardiovascular: positive: Regular rate & rhythm Respiratory: positive: No respiratory distress, Breath sounds nml, Diminished in bases. negative: Wheezes Abdomen: positive: Soft, Nml bowel sounds, Tenderness, Mass Skin: positive: Dryness Extremities: positive: No pedal edema Neurologic/Psychiatric: positive: Oriented x3, Mood/affect nml Palliative Care - POLST Patient has POLST: Yes POLST Status: DNR, Selective Treatment Pain: Pain improved, Location (abdominal tenderness with palpation of abd mass) Tiredness/Fatigue: Mild (1-3) Drowsiness/Sedation: None Nausea: None Anorexia: None Dyspnea: None Depression: Mild (1-3) Anxiety: Moderate (4-6) (pending appointment with oncology) Feelings of wellbeing/Perceived Quality of Life: Good, Acceptable, Improved Sleep: Sleeps well Constipation: No Performance Status: Patient is able to independently bathe, family checks on her frequently. She is ambulating around the house, has started to take longer walks. She does not feel quite at baseline, but is definitely improved. - Palliative Care Discussion: Patient and family have multiple questions regarding pending possible oral therapy, very concerned both cancers "Stage IV" the uterine sarcoma had "trumped" as far as treatment and wondering what is happening with her liver cancer. Both patient and family worried about patient's quality of life, if time is limited to be having significant symptom burden, patient is very happy how she feels today. We did discuss though given her underlying cancers, these would continue to progress and also have symptoms. Patient is meeting with oncologist next week, will go ahead and communicate questions patient has for discussion. Impression and Recommendations - Palliative Care Impression: This is a klaus 70-year-old [place]an woman who has a series of unfortunate events, presenting with recurrent hepatocellular carcinoma, now recurrent uterine sarcoma. She is recovering from a recent acute hospitalization after 1 cycle of doxorubicin. She is eating better, her strength is returning, she continues to struggle with goals of care. She has understanding that there may be oral therapy available, but is worried also about her liver cancer. Palliative care providing support for symptom management, support and clarification of goals, and transition to hospice when appropriate Recommendations/Counseling Done: 1. Mucositis. Patient's mucositis has resolved. 2. Weight loss. Patient is doing better with her intake, is using Ensure, encouraged to continue to increase at least to 2-3 times a day. They are doing well with small frequent meals. She is eating without difficulty, currently does not need appetite stimulant. 3. Recurrent uterine sarcoma. Patient had poor tolerance of doxorubicin with significant side effects and hospitalization, at this point is somewhat treatment adverse. She has been offered oral therapy for her cancer, remains somewhat hesitant in the context of her current quality of life. She will be following with Dr. Reid next week, to make final decision. 4. Recurrent hepatocellular Carcinoma. Patient does present with increased mass-effect and tenderness, most likely attributed to her hepatic cellular carcinoma. Family is concerned about question for continuity of care/coronary of care with [facility]. Will reach out to oncology with pending questions for upcoming visit. 5. Advanced care planning. Patient does have a POLST in place, with DNR/DNI selective treatments. Continues to struggle with clarification of goals, patient very much wants to spend time with family, but now is feeling better, more open to exploring further treatment options. Addressed questions and concerns as able, will need to defer to oncology for further follow-up and clarification regarding their questions. Time Spent: 45 minutes with greater than 50% of this done in counseling regarding concerns of cancer treatment, quality of life, continuum of care, and anticipatory guidance.
--- NOTE | 2020-07-14 09:48 | PROVIDER PROGRESS NOTE ---
Review of Systems - Constitutional Constitutional: reports: Fatigue (continues persistent but slowly improving), Poor appetite, Weight loss (had been at baseline about 120; now 92) - Ears, Nose & Throat Ears, Nose & Throat: reports: Mouth lesions (healing) - Respiratory Respiratory: reports: SOB with exertion. denies: SOB at rest - Gastrointestinal Gastrointestinal: reports: Early satiety. denies: Abdominal pain, Constipation, Nausea - Musculoskeletal Musculoskeletal: reports: Stiffness, Muscle weakness - Integumentary Integumentary: reports: Dryness - Neurological Neurological: reports: General weakness - Psychiatric Psychiatric: reports: Depression (expressing appropriate sadness/grief of current situation; does not present with hopelessness/helplessness) - Endocrine Endocrine: reports: Diabetes type 2 (does not check BS) - Hematologic/Lymphatic Hematologic/Lymph: Recurrent infections (hx of UTIs) - All Other Systems All Other Systems: reports: Reviewed and negative Medications/Allergies - Medications Home Medications: Ambulatory Orders Medication Instructions Recorded Confirmed Amlodipine Besylate 10 mg PO DAILY 04/01/13 07/01/20 Telmisartan/Hydrochlorothiazid 1 each PO DAILY 04/01/13 07/01/20 [Micardis Hct 80-12.5 mg Tablet] Acetaminophen 650 mg PO Q6HR #30 tablet 06/22/19 07/01/20 Albuterol Sulfate [Albuterol 2 puffs IH QID #1 hfa.aer.ad 07/17/19 07/01/20 Sulfate Hfa] Latanoprost [Xalatan] 2.5 ml OP DAILY 07/17/19 07/01/20 Sitagliptin Phosphate [Januvia] 50 mg PO DAILY 07/01/20 07/01/20 - Allergies Allergies/Adverse Reactions: Allergies Allergy/AdvReac Type Severity Reaction Status Date / Time erythromycin base Allergy Severe Hives Verified 06/22/19 13:05 [Erythromycin Base] azithromycin AdvReac Dizziness Verified 06/22/19 13:05 IV contrast Allergy Unknown Uncoded 06/22/19 13:05 Telehealth Visit - TeleMedicine Visit Location of patient:: Home
== END 2020-07-13 14:01 | disposition home or self-care (01) ==
LOC: PC 14:00
PROVIDERS: ATTEND Nurse Practitioner Adult Health
DX: Z51.5 Encounter for palliative care (principal); C55 Malignant neoplasm of uterus, part unspecified; C22.0 Liver cell carcinoma; E11.9 Type 2 diabetes mellitus without complications; Z85.3 Personal history of malignant neoplasm of breast; Z66 Do not resuscitate
CPT/HCPCS: 99349

== ENCOUNTER 2020-08-13 11:00 | Outpatient (CLI) | payer MEDICARE, OTHER ==
--- NOTE | 2020-08-14 15:15 | CONSULTATION NOTE ---
Palliative Care Follow Up - Referral Referring Provider: Dr. Angela Reid Time of Visit: Referral setting: Home Referral Reason: Pain of neoplastic origin/Met HCC/Met Uterine Sarcoma - Information Sources Records reviewed: Previous records reviewed History/Review of Systems obtained from: Patient, Family ( Neptali present for visit; daughter joined end of visit/Ena) Exam limitations: No limitations - History of Present Illness Update Brief HPI Update: This is a klaus and gentle 70-year-old [place] woman with known metastatic uterine sarcoma, as well as progressive hepatocellular carcinoma stage IV, who recently started pazopanib specifically for her uterine sarcoma, an oral VEGF antagonist, she is very concerned about her quality of life and side effects. She initiated treatment on 07/30, after 3 days had increasing abdominal pain, and held 08/03 and 08/04, pain subsided and she restarted. She had plan to go down to [facility] for follow-up with increase in pain, but had canceled appointments. Patient has consulted with both Dr. Reid and Dr. Griffiths who follows her for her HCC, and she iswilling to trial the therapy. She had had significant toxicities after her single agent doxorubicin at end of May, that did result in hospitalization and triggered a cascade of events, including patient refusing any more treatment. Patient did have a CT of the chest, abdomen and pelvis on 07/19/2020. It did show increase in pulmonary nodules, as well as multiple liver lesions that had increased since 05/28/2020 and additional prior studies. She does have known multiple peritoneal and pelvic nodules, felt to represent sarcoma and her alpha- fetoprotein protein 07/22/20 had risen to 35,800, which was a significant increase prior and thought to be consistent with biochemical progression of her HCC. It is hoped the pazopanib is going to be treating both her hepatocellular (phase I studies currently per onc. note) and her metastatic uterine sarcoma. She has though had fluctuating pain and increased abdominal tenderness. She does have palpated mass along her right rib and sternal area. Her abdomen is soft, though she does complain of not being able to "fart" and intermittent constipation. She is very painful with any touch of her abdomen, as well as twisting or pressure. She has had negative experiences with opioids in the past, and very hesitant to take any pain medication. She reports she is eating and drinking, she is ambulatory in the house, she had regained some functional status after hospitalization, it does appear she is having some decline at this point. She has been able to go to the [employer] weekly, this is her one kathleen. She does understand the seriousness of her illness, but is hoping for the best. She very much wants to return to the [facility] to see her family, I suspect her prognosis will not align with this goal. Past Medical History: Hypertension, hypercholesteremia, diabetes type 2, cirrhosis nonalcoholic fatty liver disease, history of hep B, hepatocellular cancer, history of partial right hip patch to ectomy and radiofrequency ablation, recurrent/progressive disease 2019. Breast cancer treated with mastectomy and tamoxifen 04/12 and modified radical hysterectomy with BSO, right pelvic dissection, ureter neck to cystostomy, progressive pulmonary nodules, cataracts Social History - Living Situation Living arrangement: At home Living Situation: With spouse/s.o., With family (Patient and family are Judaism, her dinesh is very important to her. Though has not had access to it given the pandemic. She and her live in [place], she moved to [facility] in [address] to [place] where her was originally stationed. She is originally from the [facility].) Support System: Her Neptali is very attentive and very worried, and very much is hoping for the best. Her daughter Ena, has been staying with her parents since March to provide support, she does follow-up in provide travel as well as advocate at her mother's medical appointments. Medications/Allergies - Medications Home Medications: Ambulatory Orders Medication Instructions Recorded Confirmed Amlodipine Besylate 10 mg PO DAILY 04/01/13 08/14/20 Telmisartan/Hydrochlorothiazid 1 each PO DAILY 04/01/13 08/14/20 [Micardis Hct 80-12.5 mg Tablet] Albuterol Sulfate [Albuterol 2 puffs IH QID #1 hfa.aer.ad 07/17/19 08/14/20 Sulfate Hfa] Latanoprost [Xalatan] 2.5 ml OP DAILY 07/17/19 08/14/20 Sitagliptin Phosphate [Januvia] 50 mg PO DAILY 07/01/20 08/14/20 HYDROmorphone [Dilaudid] 0.5 - 1 mg PO Q4HR PRN 08/14/20 08/14/20 Pazopanib HCl [Votrient] 800 mg PO DAILY 08/14/20 08/14/20 Senna [Senokot] 1 - 2 tab PO DAILY PRN 08/14/20 08/14/20 Simethicone [Gas Relief] 1 tab PO QID PRN 08/14/20 08/14/20 polyethylene glycoL 3350 [Miralax] 17 gm PO DAILY PRN 08/14/20 08/14/20 - Allergies Allergies/Adverse Reactions: Allergies Allergy/AdvReac Type Severity Reaction Status Date / Time erythromycin base Allergy Severe Hives Verified 06/22/19 13:05 [Erythromycin Base] azithromycin AdvReac Dizziness Verified 06/22/19 13:05 IV contrast Allergy Unknown Uncoded 06/22/19 13:05 Review of Systems - Constitutional Constitutional: reports: Fatigue, Weakness, Weight gain (97 (up from 93 last visit)) - Ears, Nose & Throat Ears, Nose & Throat: denies: Mouth lesions (resolved) - Cardiovascular Cardiovascular: reports: Lightheadedness, Decr. exercise tolerance - Respiratory Respiratory: reports: SOB with exertion. denies: SOB at rest - Gastrointestinal Gastrointestinal: reports: Constipation, Good appetite (is doing a lot of the cooking). denies: Abdominal pain, Nausea - Musculoskeletal Musculoskeletal: reports: Muscle weakness (almost back to baseline; able to walk almost a mile) - Integumentary Integumentary: reports: Dryness, Hair changes (alopecia from chemo; "dander") - Neurological Neurological: reports: General weakness - Psychiatric Psychiatric: reports: Depression (expressing appropriate sadness/grief of current situation;) - Endocrine Endocrine: reports: Diabetes type 2 (does not check BS) - All Other Systems All Other Systems: reports: Reviewed and negative Physical Exam - Vital Signs Temperature: 97.9 C Pulse Rate: 65 Respiratory Rate: 18 O2 Saturation: 99 Blood Pressure: 118/72 (112/68) - Physical Exam General Appearance: positive: No acute distress, Alert Eyes Bilateral: positive: Normal inspection ENT: negative: Oral lesions Neck: positive: Trachea midline Cardiovascular: positive: Regular rate & rhythm Respiratory: positive: No respiratory distress, Breath sounds nml, Diminished in bases. negative: Wheezes Abdomen: positive: Soft, Nml bowel sounds, Tenderness, Mass Skin: positive: Dryness Extremities: positive: No pedal edema Neurologic/Psychiatric: positive: Oriented x3, Mood/affect nml, Weakness Palliative Care - POLST Patient has POLST: Yes POLST Status: DNR, Selective Treatment Pain: Pain worsening, Location (upper abdominal area; diffuse), Pattern (Pain is persistent, across upper abdomen, worse with pressure, twisting or turning, is relieved with laying down.), Comment (Daughter is quite anxious for patient to be taking medication, reports it makes her very confused. She has used oxycodone in the past after surgery, discussed it may also be in the context of the setting. She did receive a Dilaudid infusion, which she perceives was tolerated.) Tiredness/Fatigue: Moderate (4-6) Drowsiness/Sedation: Moderate (4-6), Comment (will try and switch timing of her medication) Nausea: None Anorexia: Mild (1-3) Dyspnea: Mild (1-3) Depression: None Anxiety: Moderate (4-6) (worried about side effects) Feelings of wellbeing/Perceived Quality of Life: Fair, Acceptable, No change Sleep: Sleeps well Constipation: Yes, Intermittent constipation Performance Status: Patient is ambulatory, she has had since starting her pazopanib some feelings of lightheadedness, but has had no falls. She is able to bathe independently, though has been does provide standby assistance for all activities. He is quite nervous about her fragile status. I would put her at a PPS of 60% - Palliative Care Discussion: Patient continues to struggle with her poor prognosis, she is hoping treatment will give her some relief. She is very quick to avoid/cancel appointments, is very much wanting to be at home and with her family. She had hoped to be able to travel to the [facility], given the Covid pandemic, plus the seriousness of her illness I suspect this is quite unrealistic. Her family are quite attentive and very anxious about her taking the medication, they would like her to continue treatment but will honor her wishes. Impression and Recommendations - Palliative Care Impression: This is a klaus 70-year-old [place] woman who has 2 aggressive cancers, her metastatic/recurrent hepatocellular carcinoma as well as her recurrent uterine sarcoma. She is currently taking pazopanib, and thus far seems to be tolerating. She continues to struggle with anticipating her prognosis, as well as worried about side effects from her treatments. Patient is presenting with worsening pain, she is quite hesitant to take any medications, has had bad experiences with opioids in the past. Palliative care providing support for symptom management, support and clarification of goals, and transition to hospice when appropriate Recommendations/Counseling Done: 1. Loss. Patient is doing better with oral intake, she has gained a few pounds since her last visit. Though I suspect may also be due to some fluid in her abdomen. She is using Ensure, is eating small amounts, at this point time does not need appetite stimulant. 2. Pain of neoplastic origin. Patient quite hesitant to initiate any medication, but is willing to have some available in big case it becomes "unbearable". Will trial hydromorphone 2 mg tabs, instructed can start with a half a tab for the pain, reviewed it takes at least 30 minutes to work if it does not work recommend she take second half. Also reviewed only last 3 or 4 hours so can take up to 3-4 times a day. She is also having gas pain, encouraged to use Gas-X for gas pressure up to 4 times a day. 3. Constipation. She has both MiraLAX and senna, did take some this morning, does understand how to titrate if needed. Daughter is assisting with medication management. 4. Recurrent uterine sarcoma. Patient has started the oral therapy of pazopanib, at this point time has no appointments or labs scheduled. Will follow up with oncology, can have labs drawn here at oncology clinic through her [facility], just need to know what labs to order as well as timing. Patient verbalized understanding, would most likely not have answer until Sunday. 5. Recurrent hepatocellular carcinoma. Patient does present with increased mass-effect and tenderness, most likely attributed to her hepatic cellular carcinoma. They did meet with Dr. Griffiths on the phone, she is aware her fetoprotein has increased. 6. Advanced care planning. Patient does have a POLST in place with DNR/DNI and selective treatments. Continues to struggle with clarification of her goals, she very much wants to spend time with family, is very anxious about side effects from her treatment, continue to address questions and concerns as able, providing psychosocial support as patient explores her feelings regarding her illness. 75 minutes with greater than 50% of this time done in counseling regarding pain and symptom management, continuum of care, and anticipatory guidance.
== END 2020-08-13 11:01 | disposition home or self-care (01) ==
LOC: PC 11:00
PROVIDERS: ATTEND Nurse Practitioner Adult Health
DX: Z51.5 Encounter for palliative care (principal); R63.4 Abnormal weight loss; G89.3 Neoplasm related pain (acute) (chronic); R10.9 Unspecified abdominal pain; K59.00 Constipation, unspecified; C55 Malignant neoplasm of uterus, part unspecified; C22.0 Liver cell carcinoma; E11.9 Type 2 diabetes mellitus without complications; Z79.899 Other long term (current) drug therapy; Z66 Do not resuscitate
CPT/HCPCS: 99350

== ENCOUNTER 2020-08-24 13:49 | Outpatient (CLI) | payer MEDICARE, OTHER | END 2020-08-24 13:50 | disposition home or self-care (01) | LOC: LAB 13:49 | PROVIDERS: ATTEND Nurse Practitioner Adult Health | DX: C22.9 Malignant neoplasm of liver, not specified as primary or secondary (principal) | CPT/HCPCS: 36415; 82105 ==

== ENCOUNTER 2020-09-14 11:30 | Outpatient (CLI) | payer MEDICARE, OTHER ==
--- NOTE | 2020-09-14 17:08 | CONSULTATION NOTE ---
Palliative Care Follow Up - Referral Referring Provider: Dr. Angela Reid Time of Visit: [id number] Referral setting: Home Referral Reason: Pain of neoplastic origin/Met HCC/Met Uterine sarcoma - Information Sources Records reviewed: Previous records reviewed History/Review of Systems obtained from: Patient, Family ( Neptali, Ena daughter joined at end) Exam limitations: No limitations - History of Present Illness Update Brief HPI Update: This is a klaus and gentle 70-year-old Polish woman with known metastatic uterine sarcoma, progressive hepatocellular carcinoma stage IV, lung mets, who recently started on pazopanib specifically for her uterine sarcoma, she continues to be concerned about her quality of life and side effects. It is hoped the pazopanib is going to treat her hepatocellular, as phase one studies are currently ongoing per oncology note. She initiated treatment on 07/30, unfortunately recently due to snafu and delivery, was off for 6 days. She did note she actually felt better, off which she complains of persistent tenderness on the right side of her mouth, unable to identify any mucositis or oral lesion visually, no lymphadenopathy, she reports that is where she chews mostly. She also is complaining of persistent fatigue, she does report improved comfort in her upper abdominal area, has not needed to use any pain medications. She does have taste changes, that are impacting her ability to eat and drink, though has continued to gain weight, she is up to 101.6 today, up from 97 at our last visit a month ago. She is having regular bowel movements, mild hypertension, with her last lab draw of potassium 2.9 she was to be taking potassium 10 mEq twice daily, she had s topped after a few days as she attributed it adding to her diarrhea. She does have overall generalized weakness, but is ambulatory in her home. She continues to be hopeful, but struggling with the implications of living with serious illness. Past Medical History: Hypertension, hypercholesteremia, diabetes type 2, cirrhosis nonalcoholic fatty liver disease, history of hep B, hepatocellular cancer, history of a partial right hepatic ectomy and radiofrequency ablation, recurrent/progressive disease 2019, hx of breast cancer treatment with mastectomy and tamoxifen Social History - Living Situation Living arrangement: At home Living Situation: With spouse/s.o., With family (her daughter Ena has been living with her parents since March to provide support, working from their home.) Support System: Patient and family are [employer], her dinesh is very important to her. Though has not had access to it given the pandemic. She and her live in [place], she moved to [facility] in 1978 to [place] where her was originally stationed. She is originally from the [facility]. Medications/Allergies - Medications Home Medications: Ambulatory Orders Medication Instructions Recorded Confirmed Amlodipine Besylate 10 mg PO DAILY 04/01/13 09/15/20 Telmisartan/Hydrochlorothiazid 1 each PO DAILY 04/01/13 09/15/20 [Micardis Hct 80-12.5 mg Tablet] Albuterol Sulfate [Albuterol 2 puffs IH QID #1 hfa.aer.ad 07/17/19 09/15/20 Sulfate Hfa] Latanoprost [Xalatan] 2.5 ml OP DAILY 07/17/19 09/15/20 Sitagliptin Phosphate [Januvia] 50 mg PO DAILY 07/01/20 09/15/20 HYDROmorphone [Dilaudid] 0.5 - 1 mg PO Q4HR PRN 08/14/20 09/15/20 Pazopanib HCl [Votrient] 800 mg PO DAILY 08/14/20 09/15/20 Senna [Senokot] 1 - 2 tab PO DAILY PRN 08/14/20 09/15/20 Simethicone [Gas Relief] 1 tab PO QID PRN 08/14/20 09/15/20 polyethylene glycoL 3350 [Miralax] 17 gm PO DAILY PRN 08/14/20 09/15/20 Potassium Chloride 10 meq PO BID MDD restarted 09/1409/15/20 09/15/20 - Allergies Allergies/Adverse Reactions: Allergies Allergy/AdvReac Type Severity Reaction Status Date / Time erythromycin base Allergy Severe Hives Verified 06/22/19 13:05 [Erythromycin Base] azithromycin AdvReac Dizziness Verified 06/22/19 13:05 IV contrast Allergy Unknown Uncoded 06/22/19 13:05 Review of Systems - Constitutional Constitutional: reports: Fatigue (remains persistent and limiting), Weakness, Weight gain (101.6 (97 last month)) - Ears, Nose & Throat Ears, Nose & Throat: reports: Hearing loss, Nosebleeds (had two; since resolved and not recurrent), Dental decay (missing teeth). denies: Mouth lesions (c/o tenderness right buccal area;) - Cardiovascular Cardiovascular: reports: Lightheadedness, Decr. exercise tolerance - Respiratory Respiratory: reports: SOB with exertion. denies: SOB at rest - Gastrointestinal Gastrointestinal: reports: Good appetite (improved but impacted by taste changes "bitter"). 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; "dander") - Neurological Neurological: reports: General weakness - Psychiatric Psychiatric: reports: Depression (expressing appropriate sadness/grief of current situation;) - Endocrine Endocrine: reports: Diabetes type 2 (does not check BS) - All Other Systems All Other Systems: reports: Reviewed and negative Physical Exam - Vital Signs Temperature: 97.5 C Pulse Rate: 71 Respiratory Rate: 16 O2 Saturation: 99 (ra @ rest) Blood Pressure: 144/72 - Physical Exam General Appearance: positive: No acute distress, Alert Eyes Bilateral: positive: Normal inspection ENT: negative: Oral lesions (c/o tenderness; no visible lesion) Neck: positive: Trachea midline. negative: Lymphadenopathy (R), Lymphadenopathy (L) Cardiovascular: positive: Regular rate & rhythm Respiratory: positive: No respiratory distress, Breath sounds nml, Diminished in bases. negative: Wheezes Abdomen: positive: Soft, Nml bowel sounds, Tenderness, Mass (less able to delineate edges hepatomegly) Skin: positive: Dryness Extremities: positive: Pedal edema (trace pedal edema up to mid calf) Neurologic/Psychiatric: positive: Oriented x3, Mood/affect nml, Weakness Palliative Care - POLST Patient has POLST: Yes POLST Status: DNR, Selective Treatment Pain: Pain improved, Location (upper/right mid epigastric area) Tiredness/Fatigue: Moderate (4-6) Drowsiness/Sedation: Mild (1-3) Nausea: None Anorexia: Moderate (4-6) Dyspnea: Mild (1-3) Depression: Mild (1-3) Anxiety: Mild (1-3) Feelings of wellbeing/Perceived Quality of Life: Good, Acceptable, No change Sleep: Sleeps well Constipation: No Performance Status: Patient is ambulatory, but is ambulating only in house. is quite anxious about her weakness, does provide standby assistance. She is able to bathe, she is doing some cooking, she does get uncomfortable with long periods of standing. I would put her at a PPS of 60% - Palliative Care Discussion: Patient remains quite worried about her treatment, and the cost of her pills. She does have financial support for it, and is not paying [id number]. She wants to make sure "they are working" before ordering another round, we did discuss though she would be seeing the nurse practitioner so not to worry they would be able to monitor for side effects for if needing dose adjustment prior to that meeting with Dr. Reid. Patient does perceive her current quality of life is acceptable, she continues to hope for the best, though does recognize the seriousness of her illness. Her continues to be quite hopeful and attentive, her daughter provides both support for patient and her , and tries to let them manage with not interfering. Patient continues to want to avoid hospitalization, and aggressive interventions, though still would continue to focus on treating cancer at this point but is quite suspicious of side effects and quality of life issues. Results - Lab Results Lab results reviewed: Yes Lab and Imaging Results: Her AFP on 08/24 was down from her previously referenced 1 around 35,000, down to 15,741.0. Of concern was her potassium at 3.8, creatinine was 1.1, GFR was 49 on her labs on 08/24. Patient had been started on potassium but stopped on her own after 3 days Impression and Recommendations - Palliative Care Impression: This is a klaus 70-year-old Polish woman who has 2 serious cancers, her metastatic/recurrent hepatocellular carcinoma as well as her recurrent uterine sarcoma, and has lung mets. She is currently taking pazopanib, with only some minor side effects of fatigue, slight mucositis, taste changes, mild HTN otherwise his continue to improve with some weight gain up to 101 today. Patient had been hypokalemic, had been instructed to take potassium, she quit after 3 days, secondary to diarrhea without notifying me, she will restart today. She also had a break in her treatment related to a snafu with her prescriptions. Palliative care continue to provide support for symptom management, continue clarification of goals, and transition to hospice when appropriate. Recommendations/Counseling Done: 1. Weight loss. Patient is continue to improve her oral intake, she has gained yet another few pounds since her last visit. At this point in time she is mostly impacted by her taste changes, counseling provided regarding modifications of diet, and ways to work with taste changes. She is using intermittent Ensure, but feels like she is doing fairly well overall. 2. Pain of neoplastic origin. Patient does report decrease in discomfort, she remains very hesitant to initiate any medication. I suspect her pain threshold is fairly high and her reluctance to take anything will persist. She continues to have a lot of abdominal pressure and distention. Her abdomen is not as tender today, unable to feel the mass-effect of her hepatomegly today. 3. Hypokalemia. Patient attributed diarrhea to when she is taking the potassium supplements. Her potassium on 08/24 was 2.9. Patient counseled again on reason for potassium supplementation, she will restart 10 mEq twice daily. I will reach out to oncology team regarding medication adherence. If patient with continuous diarrhea with potassium, may need supplemental potassium IV. It may have self corrected by now as well, she is due for labs on 09/20. 4. Recurrent uterine sarcoma. She is taking her pazopanib, she is scheduled to see the nurse practitioner on 09/[address] Reid with CT scans on 10/07. Patient is quite hopeful, at this point in time finding side effects annoying but acceptable, will continue treatment. 5. Recurrent hepatocellular carcinoma, she does present with some increased lower extremity edema today, most likely attributed to some third spacing/concern for protein. She does have abdominal distention, concern for ascites. At this point in time she is tolerating her current discomfort, instructed to elevate legs, and notify me if she has increasing pain. 6. Advanced care planning. Patient remains quite reflective on her journey, answered multiple questions. We did discuss the Covid vaccine at length, there is much concern, requested she follow-up with Dr. Reid's team regarding recommendations. Patient is still going to the casino once in a while, but has very low exposure. She continues in watchful and hopeful waiting, denies depression or anxiety. Has been remains quite attentive, has started checking blood pressures and participating in appointment today. 60 minutes with greater than 50% of this done in counseling regarding symptom management, anticipatory guidance, psychosocial support, and coordination of care with oncology team
== END 2020-09-14 11:31 | disposition home or self-care (01) ==
LOC: PC 11:30
PROVIDERS: ATTEND Nurse Practitioner Adult Health
DX: Z51.5 Encounter for palliative care (principal); R63.4 Abnormal weight loss; G89.3 Neoplasm related pain (acute) (chronic); E87.6 Hypokalemia; C55 Malignant neoplasm of uterus, part unspecified; C22.0 Liver cell carcinoma; C78.00 Secondary malignant neoplasm of unspecified lung; I10 Essential (primary) hypertension; E11.9 Type 2 diabetes mellitus without complications; K74.60 Unspecified cirrhosis of liver; Z85.3 Personal history of malignant neoplasm of breast; Z79.899 Other long term (current) drug therapy; Z66 Do not resuscitate
CPT/HCPCS: 99350

== ENCOUNTER 2020-10-11 13:20 | Outpatient (CLI) | payer MEDICARE, OTHER ==
--- NOTE | 2020-10-11 16:51 | CONSULTATION NOTE ---
Palliative Care Follow Up - Referral Referring Provider: Dr. Angela Reid Time of Visit: [id number] Referral setting: Home Referral Reason: Pain of neoplastic origin/Met HCC/Met Uterine Sarcoma - Information Sources Records reviewed: Previous records reviewed History/Review of Systems obtained from: Patient, Family ( Neptali and daughter) Exam limitations: No limitations - History of Present Illness Update Brief HPI Update: This is a klaus 70-year-old Taj[place] woman with known metastatic uterine sarcoma, hepatocellular carcinoma stage IV, lung mets, recently started on pazopanib. She is recently seen her oncologist, her platelets were down to 58,000, she has here pazopanib on hold, with labs pending for , with most likely a dose reduction. She reports she has had mixed response, she does present with increasing abdominal tightness, suspect ascites. She does have some lower extremity edema which is very bothersome to her, though is about 1+ up to mid calf. She is having increased pain, located mid to right upper quadrants, she is reporting "she can tolerate it" is using intermittent ac etaminophen with some relief. She does have some hydromorphone there but is very fearful of taking any pain meds. She does seem to have some functional decline, with decreased activity tolerance, is sleeping more, she is ambivalent about wanting to explore further her prognosis but is quite verbal today that she knows she is doing poorly. Past Medical History: Hypertension, hypercholesteremia, diabetes type 2, cirrhosis nonalcoholic fatty liver disease, history of hep B, hepatocellular cancer, history of partial right hip hepatectomy, radiofrequency ablation, recurrent/progressive disease 2019, history of breast cancer treatment with left Mastectomy and tamoxifen Social History - Living Situation Living arrangement: At home Living Situation: With spouse/s.o., With family (her daughter Ena has been living with her parents since March to provide support, working from their home.) Support System: Patient's lives with her spouse Neptali, her daughter Ena has been living with him since March to provide support, working from their home. Patient and family are L[employer], her dinesh is very important to her. She and her live in [place], she moved [facility] in 1978 to [place] where her was originally stationed, she is originally from the [facility].She has a klaus home, and very much wants to spend as much time with her family as possible Medications/Allergies - Medications Home Medications: Ambulatory Orders Medication Instructions Recorded Confirmed Amlodipine Besylate 10 mg PO DAILY 04/01/13 10/12/20 Telmisartan/Hydrochlorothiazid 1 each PO DAILY 04/01/13 10/12/20 [Micardis Hct 80-12.5 mg Tablet] Albuterol Sulfate [Albuterol 2 puffs IH QID #1 hfa.aer.ad 07/17/19 10/12/20 Sulfate Hfa] Latanoprost [Xalatan] 2.5 ml OP DAILY 07/17/19 10/12/20 Sitagliptin Phosphate [Januvia] 50 mg PO DAILY 07/01/20 10/12/20 HYDROmorphone [Dilaudid] 0.5 - 1 mg PO Q4HR PRN 08/14/20 10/12/20 Pazopanib HCl [Votrient] 400 mg PO DAILY MDD ON HOLD 08/14/20 10/12/20 Senna [Senokot] 1 - 2 tab PO DAILY PRN 08/14/20 10/12/20 Simethicone [Gas Relief] 1 tab PO QID PRN 08/14/20 10/12/20 polyethylene glycoL 3350 [Miralax] 17 gm PO DAILY PRN 08/14/20 10/12/20 Potassium Chloride 10 meq PO BID 09/15/20 10/12/20 Acetaminophen [Tylenol] 325 - 650 ng PO Q6HR PRN MDD 199910/12/20 10/12/20 MG - Allergies Allergies/Adverse Reactions: Allergies Allergy/AdvReac Type Severity Reaction Status Date / Time erythromycin base Allergy Severe Hives Verified 06/22/19 13:05 [Erythromycin Base] azithromycin AdvReac Dizziness Verified 06/22/19 13:05 IV contrast Allergy Unknown Uncoded 06/22/19 13:05 Review of Systems - Constitutional Constitutional: reports: Fatigue (worsening), Weakness, Weight stable (125 suspect some fluid weigh) - Ears, Nose & Throat Ears, Nose & Throat: reports: Hearing loss, Nosebleeds, Dental decay (missing teeth). denies: Mouth lesions (c/o tenderness right buccal area;) - Cardiovascular Cardiovascular: reports: Lightheadedness, Decr. exercise tolerance - Respiratory Respiratory: reports: SOB with exertion. denies: SOB at rest - Gastrointestinal Gastrointestinal: reports: Abdominal pain (worsening RUQ), Bloating, Poor appetite, Early satiety. denies: Constipation, Nausea - Musculoskeletal Musculoskeletal: reports: Muscle weakness (more sedentary; ambulatory in house), Other ( provides SBA) - Integumentary Integumentary: reports: Dryness, Hair changes (alopecia from chemo; "dander") - Neurological Neurological: reports: General weakness - Psychiatric Psychiatric: reports: Depression (expressing appropriate sadness/grief of current situation;) - Endocrine Endocrine: reports: Diabetes type 2 (does not check BS) - All Other Systems All Other Systems: reports: Reviewed and negative Physical Exam - Vital Signs Temperature: 97.5 C Pulse Rate: 76 Respiratory Rate: 16 O2 Saturation: 100 Blood Pressure: 138/74 - Physical Exam General Appearance: positive: No acute distress, Alert, Anxious Eyes Bilateral: positive: Normal inspection Neck: positive: Trachea midline Cardiovascular: positive: Regular rate & rhythm Respiratory: positive: No respiratory distress Abdomen: positive: Soft, Nml bowel sounds, Tenderness, Mass Skin: positive: Dryness Extremities: positive: Pedal edema (trace pedal edema up to mid calf; distressing to patient) Neurologic/Psychiatric: positive: Oriented x3, Mood/affect nml, Weakness Palliative Care - POLST Patient has POLST: Yes POLST Status: DNR, Comfort Measures Pain: Pain worsening, Location (right upper quadrant; persistent; worse when lays on it), Pattern (fluctuates during day), Comment (Patient reports high pain tolerance, is only using intermittent acetaminophen, no more than 1 or 2 tabs in 24 hours.She does report she gets some relief from this, she is not interested in trialing her opioid.) Tiredness/Fatigue: Moderate (4-6) Drowsiness/Sedation: Moderate (4-6) (sleeping more) Nausea: None Anorexia: Moderate (4-6) Dyspnea: Mild (1-3) Depression: Mild (1-3) Anxiety: Mild (1-3) Feelings of wellbeing/Perceived Quality of Life: Fair, Worsening Sleep: Sleeps well Constipation: Yes, Managed Performance Status: Patient does describe some functional decline, sleeping more ambulatory mostly in her home. Her is quite attentive, and provide standby assistance with most activity. She does get uncomfortable with long periods of standing, is able to bathe. A PPS of 60%. - Palliative Care Discussion: Patient is much more anxious and tearful, her treatment is currently on hold because of her thrombocytopenia. She does feel increasing pain and feels like she is declining. She is reflecting on her feeling that she has a limited life expectancy and worsening prognosis. We did discuss what she would do differently, she very much likes being home and spending time with family, going to the casino, she is appropriately tearful and suspects she is expressing feelings of vulnerability. Her visibly continues to struggle with her expression of her current feelings regarding this, calls her "radical". Did ask if it would be helpful if Dr. Reid talk to her more about her prognosis, she is somewhat ambiguous about this, and tried to help her tease out what she would do differently with this information. Counseling provided and support with patient and family just how hard it is to be in the moment, and finding things that provide her kathleen and comfort. Results - Lab Results Lab results reviewed: Yes Impression and Recommendations - Palliative Care Impression: This is a klaus 70-year-old [place] woman who has 2 serious cancers, her metastatic/recurrent hepatocellular Carcinoma as well as her recurrent uterine sarcoma and has lung mets. She is currently on hold from her pazopanib, secondary to thrombocytopenia. She has had some decline in functional status, increased difficulty with anorexia, taste changes, and declining nutritional status since our last meeting. Palliative care continue provide support for symptom management, continue clarification of goals, and transition to hospice when appropriate Recommendations/Counseling Done: 1. Pain of neoplastic origin. Patient does report increasing discomfort, she has been using some acetaminophen with some relief. Instructed not to use more than 2000 mg in 24 hours, she continues to have a fairly high threshold for her pain in quite hesitant to initiate any opioids. We will continue to encourage, she is using heat with some relief. 2. Anorexia. Patient has had a decline in her oral intake, mostly attributed to early satiety and taste changes. She is looking for things that taste good and she can tolerate, she is taking sips of Ensure, this has been complicated as it causes some diarrhea for her. We did discuss diluting it, taking small frequent sips through the day, and looking at other high-calorie supplements. 3. Hypokalemia. Patient is currently at 3.1, she is taking her potassium twice a day, she is due for labs on , will evaluate and follow-up. She is quite anxious that these get to her oncologist, will double check and review them as well. 4. Recurrent uterine sarcoma. She had mixed results on her scans, which she reports is actually decrease in her liver tumor versus her abdominal tumors, she is talking more though about end-of-life, and concern regarding prognosis. I did offer her to follow-up with Dr. Reid regarding more definitive information, she remains quite ambivalent. We did discuss in the context of quality of life, trying to focus on the present and trying to tease out if there was something different she would do with the information. 5. Lower extremity edema. Suspect this is multifactorial, including her low albumin. Discussed her lungs are clear, is most not likely going to respond to diuretics without causing more harm than good. Patient is also lower pain can have swelling, as well as concern for the pazopanib. She reports it may be a little bit better, she did not tolerate support stockings, continue to encourage to elevate when sitting. 6. Advanced care planning. Patient remains quite reflective on her journey, patient has very much come to terms that this is a serious illness and will be leading to an end-of-life event. She is quite anxious regarding this, her goal is to spend as much time with her family as possible. 60 minutes with greater than 50% of this done in counseling regarding pain and symptom management, anticipatory guidance, goals of care, and coordination of care with oncology team
== END 2020-10-11 13:21 | disposition home or self-care (01) ==
LOC: PC 13:20
PROVIDERS: ATTEND Nurse Practitioner Adult Health
DX: Z51.5 Encounter for palliative care (principal); G89.3 Neoplasm related pain (acute) (chronic); C55 Malignant neoplasm of uterus, part unspecified; C22.0 Liver cell carcinoma; C78.00 Secondary malignant neoplasm of unspecified lung; R63.0 Anorexia; E87.6 Hypokalemia; R60.0 Localized edema; D69.6 Thrombocytopenia, unspecified; E11.9 Type 2 diabetes mellitus without complications; Z79.84 Long term (current) use of oral hypoglycemic drugs; Z66 Do not resuscitate
CPT/HCPCS: 99350

== ENCOUNTER 2020-10-14 11:40 | Outpatient (CLI) | payer MEDICARE, OTHER ==
[2020-10-14 19:07] LABS: BASOPHILS # (AUTO) 0.1 10^3/uL (0.0-0.1); BASOPHILS % (AUTO) 1.1 %; EOSINOPHILS # (AUTO) 0.2 10^3/uL (0.0-0.7); EOSINOPHILS % (AUTO) 3.9 %; HCT - HEMATOCRIT 27.3 % (37.0-47.0); HGB - HEMOGLOBIN 8.9 g/dL (12.0-16.0); LYMPHOCYTES % (AUTO) 19.3 %; MEAN CORPUSCULAR HEMOGLOBIN 38.7 pg (27.0-31.0); MEAN CORPUSCULAR HGB CONC 32.6 g/dL (32.0-36.0); MEAN CORPUSCULAR VOLUME 118.7 fL (81.0-99.0); MEAN PLATELET VOLUME 11.6 fL (7.9-10.8); MONOCYTES # (AUTO) 0.7 10^3/uL (0.0-1.0); MONOCYTES % (AUTO) 12.9 %; NEUTROPHILS # (AUTO) 3.3 10^3/uL (1.5-6.6); NEUTROPHILS % (AUTO) 62.4 %; PLT - PLATELET COUNT 126 10^3/uL (130-450); WHITE BLOOD COUNT 5.3 x10^3/uL (4.8-10.8)
[2020-10-14 19:08] LABS: SLIDE REVIEW? Indicated
[2020-10-14 19:21] LABS: CALCIUM 8.2 mg/dL (8.5-10.3); CREATININE 1.1 mg/dL (0.4-1.0); PLATELET MORPHOLOGY NORMAL APPEARANCE (NORMAL); POTASSIUM 3.5 mmol/L (3.5-5.0)
[2020-10-14 19:22] LABS: PLATELET ESTIMATE, MANUAL DECREASED (<130,000) (NORMAL); RBC MORPHOLOGY (MULTIPLE) 1+ ANISOCYTOSIS (NORMAL); WBC MORPHOLOGY (MULTIPLE) NORMAL APPEARANCE (NORMAL)
== END 2020-10-14 11:41 | disposition home or self-care (01) ==
LOC: LAB.N 11:40
PROVIDERS: ATTEND Obstetrics & Gynecology Gynecologic Oncology
DX: C54.9 Malignant neoplasm of corpus uteri, unspecified (principal)
CPT/HCPCS: 36415; 80048; 85025

== ENCOUNTER 2020-10-18 15:50 | Observation (INO) | payer MEDICARE, OTHER ==
[2020-10-18 18:23] LABS: BASOPHILS % (AUTO) 0.6 %; EOSINOPHILS # (AUTO) 0.2 10^3/uL (0.0-0.7); EOSINOPHILS % (AUTO) 2.7 %; HCT - HEMATOCRIT 23.3 % (37.0-47.0); HGB - HEMOGLOBIN 7.9 g/dL (12.0-16.0); LYMPHOCYTES % (AUTO) 15.2 %; MEAN CORPUSCULAR HEMOGLOBIN 39.5 pg (27.0-31.0); MEAN CORPUSCULAR HGB CONC 33.9 g/dL (32.0-36.0); MEAN CORPUSCULAR VOLUME 116.5 fL (81.0-99.0); MEAN PLATELET VOLUME 10.5 fL (7.9-10.8); MONOCYTES # (AUTO) 0.9 10^3/uL (0.0-1.0); MONOCYTES % (AUTO) 14.4 %; NEUTROPHILS # (AUTO) 4.3 10^3/uL (1.5-6.6); NEUTROPHILS % (AUTO) 66.8 %; PLT - PLATELET COUNT 142 10^3/uL (130-450); RED CELL DISTRIBUTION WIDTH 17.8 % (12.0-15.0); WHITE BLOOD COUNT 6.4 x10^3/uL (4.8-10.8)
[2020-10-18 18:26] LABS: SLIDE REVIEW? Indicated
[2020-10-18 18:35] LABS: ALBUMIN 2.3 g/dL (3.2-5.5); ALBUMIN/GLOBULIN RATIO 0.7 (1.0-2.2); CALCIUM 8.2 mg/dL (8.5-10.3); CREATININE 1.2 mg/dL (0.4-1.0); MAGNESIUM 1.8 mg/dL (1.7-2.8); PHOSPHORUS 3.2 mg/dL (2.5-4.6); POTASSIUM 3.5 mmol/L (3.5-5.0); TOTAL PROTEIN 5.7 g/dL (6.7-8.2)
[2020-10-18 19:25] LABS: PLATELET ESTIMATE, MANUAL NORMAL (130-450,000) (NORMAL); PLATELET MORPHOLOGY NORMAL APPEARANCE (NORMAL)
[2020-10-18 19:32] LABS: VBG BASE EXCESS -2.4 mmol/L (-2 - +2); VBG HCO3 22.1 mmol/L (23-28); VBG PH 7.395 (7.31-7.41); VBG PO2 27.5 mmHg (25-47); VBG TOTAL CO2 23.3 mmol/L (24-29)
[2020-10-18 19:33] LABS: VBG OXYGEN SATURATION 48.1 % (60-80)
[2020-10-18 19:38] LABS: INR 1.1 (0.8-1.2); PT - PROTHROMBIN TIME 12.6 secs (9.9-12.6)
[2020-10-18 19:45] LABS: PARTIAL THROMBOPLASTIN TIME 31.7 secs (24.9-33.3)
[2020-10-18 20:49] LABS: B. PARAPERTUSSIS- RESP PCR PAN NOT DETECTED; B. PERTUSSIS- RESP PCR PANEL NOT DETECTED; C. PNEUMONIAE- RESP PCR PANEL NOT DETECTED; CORONAVIRUS 229E-RESP PCR NOT DETECTED; CORONAVIRUS HKU1-RESP PCR NOT DETECTED; CORONAVIRUS NL63-RESP PCR NOT DETECTED; CORONAVIRUS OC43-RESP PCR NOT DETECTED; HUMAN METAPNEUMOVIRUS NOT DETECTED; INFLUENZA A- RESP PCR PANEL NOT DETECTED; INFLUENZA B - RESP PCR PANEL NOT DETECTED; M. PNEUMONIAE- RESP PCR PANEL NOT DETECTED; PARAINFLUENZA VIRUS 1 NOT DETECTED; PARAINFLUENZA VIRUS 2 NOT DETECTED; PARAINFLUENZA VIRUS 3 NOT DETECTED; PARAINFLUENZA VIRUS 4 NOT DETECTED; RHINOVIRUS/ENTEROVIRUS NOT DETECTED; RSV- RESP PCR PANEL NOT DETECTED; SARS-CoV-2 -RESP PCR PANEL NOT DETECTED
[2020-10-18] MEDS ORDERED: IOPAMIDOL-300 100 ML VIAL ONE (22:24)
[2020-10-18] MEDS ORDERED: diphenhydrAMINE 25 MG CAPSULE PO STA (22:26)
--- NOTE | 2020-10-18 22:39 | ED Physician Documentation ---
History of Present Illness - Stated complaint Stated Complaint: SWOLLEN FEET - Chief complaint Chief Complaint: Ext Problem - History obtained from History obtained from: Patient, Family () - Additonal information Additional information: 70-year-old woman with past medical history of sarcoma, hepatocellular carcinoma currently on oral chemotherapy with treatment from oncologist Dr. Angela Reid, presents with dyspnea on exertion progressively worsening over the past 2 weeks as well as bilateral lower extremity swelling since being discharged from the hospital a week ago. Patient denies fevers, cough, chest pain nausea or vomiting. She does endorse some abdominal distention that has been slowly worsening does not have abdominal pain. Review of Systems Ten Systems: 10 systems reviewed and negative Constitutional: reports: Myalgias, Fatigue. denies: Fever, Chills Cardiac: denies: Chest pain / pressure Respiratory: reports: Dyspnea. denies: Cough GI: reports: Abdominal Swelling. 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: Hysterectomy, Oophrectomy, Mastectomy, Other HEENT: Cataracts - Present Medications Home Medications: Ambulatory Orders Medication Instructions Recorded Confirmed Amlodipine Besylate 10 mg PO DAILY 04/01/13 10/12/20 Telmisartan/Hydrochlorothiazid 1 each PO DAILY 04/01/13 10/12/20 [Micardis Hct 80-12.5 mg Tablet] Albuterol Sulfate [Albuterol 2 puffs IH QID #1 hfa.aer.ad 07/17/19 10/12/20 Sulfate Hfa] Latanoprost [Xalatan] 2.5 ml OP DAILY 07/17/19 10/12/20 Sitagliptin Phosphate [Januvia] 50 mg PO DAILY 07/01/20 10/12/20 HYDROmorphone [Dilaudid] 0.5 - 1 mg PO Q4HR PRN 08/14/20 10/12/20 Pazopanib HCl [Votrient] 400 mg PO DAILY MDD ON HOLD 08/14/20 10/12/20 Senna [Senokot] 1 - 2 tab PO DAILY PRN 08/14/20 10/12/20 Simethicone [Gas Relief] 1 tab PO QID PRN 08/14/20 10/12/20 polyethylene glycoL 3350 [Miralax] 17 gm PO DAILY PRN 08/14/20 10/12/20 Potassium Chloride 10 meq PO BID 09/15/20 10/12/20 Acetaminophen [Tylenol] 325 - 650 ng PO Q6HR PRN MDD 199910/12/20 10/12/20 MG - Allergies Allergies/Adverse Reactions: Allergies Allergy/AdvReac Type Severity Reaction Status Date / Time erythromycin base Allergy Severe Hives Verified 10/18/20 16:24 [Erythromycin Base] azithromycin AdvReac Dizziness Verified 10/18/20 16:24 IV contrast Allergy Unknown Uncoded 10/18/20 16:24 - Social History Does the pt smoke?: No Smoking Status: Never smoker Does the pt drink ETOH?: No Does the pt have substance abuse?: No - Immunizations Immunizations are current?: No - POLST Patient has POLST: Yes PD ED PE NORMAL - Vitals Vital signs reviewed: Yes - General General: Alert and oriented X 3, No acute distress, Well developed/nourished - HEENT HEENT: Atraumatic, PERRL, EOMI - Neck Neck: Supple, no meningeal sign - Cardiac Cardiac: RRR - Respiratory Respiratory: No respiratory distress, Clear bilaterally - Abdomen Abdomen: Non tender, Other (Mildly distended) - Back Back: No CVA TTP - Derm Derm: Normal color - Extremities Extremities: No deformity, Other (Bilateral 1+ peripheral edema) - Neuro Neuro: Alert and oriented X 3 - Psych Psych: Normal mood, Normal affect Results - Vitals Vitals: Vital Signs - 24 hr 10/18/20 10/18/20 10/18/20 16:20 18:35 20:08 Temperature 37.2 C Heart Rate 85 90 87 Respiratory 14 28 H 23 Rate Blood Pressure 134/61 H 139/66 H 126/62 O2 Saturation 100 99 95 10/18/20 22:13 Temperature Heart Rate 85 Respiratory Rate Blood Pressure 135/72 H O2 Saturation 97 Oxygen O2 Source Room air - Labs Labs: Laboratory Tests 10/18/20 10/18/20 10/18/20 18:11 18:11 18:11 WBC 6.4 RBC 2.00 L Hgb 7.9 L Hct 23.3 L MCV 116.5 H MCH 39.5 H MCHC 33.9 RDW 17.8 H Plt Count 142 MPV 10.5 Neut # (Auto) 4.3 Lymph # (Auto) 1.0 L Braxton # (Auto) 0.9 Eos # (Auto) 0.2 Baso # (Auto) 0.0 Absolute Nucleated RBC 0.00 Nucleated RBC % 0.0 Manual Slide Review Indicated Platelet Estimate NORMAL (130-450,000) Platelet Morphology NORMAL APPEARANCE RBC Morph Micro Appear 2+ POIKILOCYTOSIS PT INR APTT D-Dimer VBG pH VBG pCO2 VBG pO2 VBG HCO3 VBG Total CO2 VBG O2 Saturation VBG Base Excess Sodium 133 L Potassium 3.5 Chloride 102 Carbon Dioxide 21 Anion Gap 10.0 BUN 23 H Creatinine 1.2 H Estimated GFR (MDRD) 44 L Glucose 136 H Calcium 8.2 L Phosphorus 3.2 Magnesium 1.8 Total Bilirubin 1.0 AST 31 ALT 18 Alkaline Phosphatase 57 B-Natriuretic Peptide 128 H Total Protein 5.7 L Albumin 2.3 L Globulin 3.4 Albumin/Globulin Ratio 0.7 L Nasal Adenovirus (PCR) Nasal B. parapertussis DNA (PCR) Nasal Coronavir 229E PCR Nasal Coronavir HKU1 PCR Nasal Coronavir NL63 PCR Nasal Coronavir OC43 PCR Nasal Enterovir/Rhinovir PCR Nasal Influenza B PCR Nasal Influenza A PCR Nasal Parainfluen 1 PCR Nasal Parainfluen 2 PCR Nasal Parainfluen 3 PCR Nasal Parainfluen 4 PCR Nasal RSV (PCR) Nasal B.pertussis DNA PCR Nasal C.pneumoniae (PCR) Jose R Human Metapneumo PCR Nasal M.pneumoniae (PCR) Nasal SARS-CoV-2 (PCR) 10/18/20 10/18/20 10/18/20 18:11 18:11 19:24 WBC RBC Hgb Hct MCV MCH MCHC RDW Plt Count MPV Neut # (Auto) Lymph # (Auto) Braxton # (Auto) Eos # (Auto) Baso # (Auto) Absolute Nucleated RBC Nucleated RBC % Manual Slide Review Platelet Estimate Platelet Morphology RBC Morph Micro Appear PT 12.6 INR 1.1 APTT 31.7 D-Dimer > 1050.0 H VBG pH 7.395 VBG pCO2 37.0 L VBG pO2 27.5 VBG HCO3 22.1 L VBG Total CO2 23.3 L VBG O2 Saturation 48.1 L VBG Base Excess -2.4 L Sodium Potassium Chloride Carbon Dioxide Anion Gap BUN Creatinine Estimated GFR (MDRD) Glucose Calcium Phosphorus Magnesium Total Bilirubin AST ALT Alkaline Phosphatase B-Natriuretic Peptide Total Protein Albumin Globulin Albumin/Globulin Ratio Nasal Adenovirus (PCR) Nasal B. parapertussis DNA (PCR) Nasal Coronavir 229E PCR Nasal Coronavir HKU1 PCR Nasal Coronavir NL63 PCR Nasal Coronavir OC43 PCR Nasal Enterovir/Rhinovir PCR Nasal Influenza B PCR Nasal Influenza A PCR Nasal Parainfluen 1 PCR Nasal Parainfluen 2 PCR Nasal Parainfluen 3 PCR Nasal Parainfluen 4 PCR Nasal RSV (PCR) Nasal B.pertussis DNA PCR Nasal C.pneumoniae (PCR) Jose R Human Metapneumo PCR Nasal M.pneumoniae (PCR) Nasal SARS-CoV-2 (PCR) 10/18/20 19:38 WBC RBC Hgb Hct MCV MCH MCHC RDW Plt Count MPV Neut # (Auto) Lymph # (Auto) Braxton # (Auto) Eos # (Auto) Baso # (Auto) Absolute Nucleated RBC Nucleated RBC % Manual Slide Review Platelet Estimate Platelet Morphology RBC Morph Micro Appear PT INR APTT D-Dimer VBG pH VBG pCO2 VBG pO2 VBG HCO3 VBG Total CO2 VBG O2 Saturation VBG Base Excess Sodium Potassium Chloride Carbon Dioxide Anion Gap BUN Creatinine Estimated GFR (MDRD) Glucose Calcium Phosphorus Magnesium Total Bilirubin AST ALT Alkaline Phosphatase B-Natriuretic Peptide Total Protein Albumin Globulin Albumin/Globulin Ratio Nasal Adenovirus (PCR) NOT DETECTED Nasal B. parapertussis DNA (PCR) NOT DETECTED Nasal Coronavir 229E PCR NOT DETECTED Nasal Coronavir HKU1 PCR NOT DETECTED Nasal Coronavir NL63 PCR NOT DETECTED Nasal Coronavir OC43 PCR NOT DETECTED Nasal Enterovir/Rhinovir PCR NOT DETECTED Nasal Influenza B PCR NOT DETECTED Nasal Influenza A PCR NOT DETECTED Nasal Parainfluen 1 PCR NOT DETECTED Nasal Parainfluen 2 PCR NOT DETECTED Nasal Parainfluen 3 PCR NOT DETECTED Nasal Parainfluen 4 PCR NOT DETECTED Nasal RSV (PCR) NOT DETECTED Nasal B.pertussis DNA PCR NOT DETECTED Nasal C.pneumoniae (PCR) NOT DETECTED Jose R Human Metapneumo PCR NOT DETECTED Nasal M.pneumoniae (PCR) NOT DETECTED Nasal SARS-CoV-2 (PCR) NOT DETECTED PD MEDICAL DECISION MAKING - ED course ED course: 70-year-old woman presents with shortness of breath and bilateral leg swelling, found to have elevated D-dimer on lab work as well as acute drop in her hemoglobin from 8.9 on 10/14-7.9 today. Fecal occult blood test was sent as well as a CT angio chest abdomen pelvis which our hospitalist Dr. Holland will follow. Departure - Departure Disposition: 66 [facility] DC/Xfer Clinical Impression: Anemia, Leg swelling, Abdominal swelling Condition: Stable
[2020-10-18 22:41] LABS: FECAL OCCULT BLOOD (FIT) POSITIVE (NEGATIVE)
[2020-10-18] MEDS ORDERED: IOPAMIDOL-300 100 ML VIAL IVP ONE (23:38)
[2020-10-19] MEDS ORDERED: ACETAMINOPHEN 325 MG TABLET PO PRN (01:43)
[2020-10-19] MEDS ORDERED: ONDANSETRON 4 MG/2 ML VIAL IVP PRN ×2 (01:43→15:14)
[2020-10-19] MEDS ORDERED: SODIUM CHLORIDE FLUSH 0.9% 10 ML SYRINGE IVP PRN (01:43)
--- NOTE | 2020-10-19 01:55 | HISTORY & PHYSICAL EXAMINATION ---
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 She states symptoms have been going on for the past 2 weeks[address] She had a CT of the abdomen pelvis over 1 week ago to monitor her ligament centimeters from what her tells me, it appears things were stable. They called their oncologist at the [facility] regarding the lower extremity edema and is recommended that they stopped over try it as this can be contributing to it. They have stopped this for a week but she still has ongoing lower extremity edema without improvement and so they contacted her oncologist again today who recommend seeing her primary care provider to adjust her antihypertensives. [place] and noticed that she was quite edematous up to her abdomen and referred the patient to the emergency department. She states she does have a little bit of dyspnea with exertion which has been going on for the past 2 weeks as well. No dyspnea at rest. She denies chest pain, cough, fevers, chills. She will occasionally feel dizzy and lightheaded. She has not noticed any bleeding. Denies dark tarry stools, hematuria. She is not on any antiplatelet or anticoagulation. She reports having an EGD many years ago when she diagnosed with hepatocellular carcinoma which was unremarkable. She is taking amlodipine for her blood pressure which she has been on for quite a few years. She feels like her abdominal distention is increasing and she feels more bloated. In the emergency department, she was found to be afebrile with temperature of 31.2 C. Her heart is in the 80s. Blood pressure was in the 130s systolic. Boone elena was not tachypneic and saturating well on room air. Labs were significant for hemoglobin 7.9 with MCV of 116. Her hemoglobin of years ago was 8.9 and in August was 11.7. Her D-dimer is greater than 1050. Her creatinine was 1.2. BNP was 128.Chest x-ray revealed no acute normalities. She underwent a CT angiogram of the chest which showed no pulmonary embolism but did have pulmonary nodules consistent with metastatic disease. CT of the abdomen pelvis was consistent with her prior history of sarcoma with evidence of metastatic disease to the liver, lymphadenopathy and adrenal metastasis. Her stool was heme positive. Given the above findings, medicine was consulted for admission. I did discuss goals of care with the patient and she would like to be a DNR. History - Past Medical History Cardiovascular: reports: Hypertension, High cholesterol Respiratory: reports: None Endocrine/Autoimmune: reports: Type 2 diabetes GI: reports: Other (History of hepatocellular carcinoma.) FSR: reports: Uterine cancer (Sarcoma), Breast cancer : reports: None Psych: reports: None Musculoskeletal: reports: None Derm: reports: None MRSA Hx?: No - Past Surgical History General: reports: Liver surgery /FSR: reports: Hysterectomy, Oophrectomy, Mastectomy HEENT: reports: Cataracts - Family & Social History Family History: Mother: , Hypertension, Father: , Hypertension Family History Comment/Other: She reports that both of her parents had a history of hypertension. Living Situation: With spouse/s.o. Social History Notes: She lives at home with her . She is a non-smoker and does not drink alcohol. - POLST Patient has POLST: Yes Meds/Allgy - Home Medications Home Medications: Ambulatory Orders Medication Instructions Recorded Confirmed Amlodipine Besylate 10 mg PO DAILY 04/01/13 10/12/20 Telmisartan/Hydrochlorothiazid 1 each PO DAILY 04/01/13 10/12/20 [Micardis Hct 80-12.5 mg Tablet] Albuterol Sulfate [Albuterol 2 puffs IH QID #1 hfa.aer.ad 07/17/19 10/12/20 Sulfate Hfa] Latanoprost [Xalatan] 2.5 ml OP DAILY 07/17/19 10/12/20 Sitagliptin Phosphate [Januvia] 50 mg PO DAILY 07/01/20 10/12/20 HYDROmorphone [Dilaudid] 0.5 - 1 mg PO Q4HR PRN 08/14/20 10/12/20 Pazopanib HCl [Votrient] 400 mg PO DAILY MDD ON HOLD 08/14/20 10/12/20 Senna [Senokot] 1 - 2 tab PO DAILY PRN 08/14/20 10/12/20 Simethicone [Gas Relief] 1 tab PO QID PRN 08/14/20 10/12/20 polyethylene glycoL 3350 [Miralax] 17 gm PO DAILY PRN 08/14/20 10/12/20 Potassium Chloride 10 meq PO BID 09/15/20 10/12/20 Acetaminophen [Tylenol] 325 - 650 ng PO Q6HR PRN MDD 199910/12/20 10/12/20 MG - Allergies Allergies/Adverse Reactions: Allergies Allergy/AdvReac Type Severity Reaction Status Date / Time erythromycin base Allergy Severe Hives Verified 10/18/20 16:24 [Erythromycin Base] azithromycin AdvReac Dizziness Verified 10/18/20 16:24 IV contrast Allergy Unknown Uncoded 10/18/20 16:24 Review of Systems - Constitutional Constitutional: reports: Fatigue. denies: Fever, Chills, Weakness - Ears, Nose & Throat Ears, Nose & Throat: denies: Nasal discharge, Nasal congestion, Postnasal drai nage, Sore throat - Cardiovascular Cariovascular: reports: Edema, Exertional dyspnea, Decr. exercise tolerance. denies: Chest pain - Respiratory Respiratory: reports: SOB with exertion. denies: Cough, SOB at rest - Gastrointestinal Gastrointestinal: reports: Abdominal pain, Abdominal distention. denies: Change in bowel habits, Black stools, Bloody stools, Nausea, Vomiting - Genitourinary Genitourinary: reports: Urgency. denies: Dysuria, Frequency, Hematuria - Integumentary Integumentary: denies: Rash - Neurological Neurological: reports: General weakness, Dizziness. denies: Focal weakness - Hematologic/Lymphatic Hematologic/Lymphatic: denies: Anemia, Bleeding tendencies - All Other Systems All Other Systems: reports: Reviewed and negative Prior Level of Functionality: She is independent with her ADLs. Exam - Vital Signs Reviewed Vital Signs: Yes Vital Signs: Vital Signs x48h Pulse Resp BP Pulse Ox 10/18/20 22:13 85 135/72 H 97 10/18/20 20:08 87 23 126/62 95 10/18/20 18:35 90 28 H 139/66 H 99 - Physical Exam General Appearance: positive: No acute distress, Alert Eyes Bilateral: positive: Other (Conjunctival pallor) ENT: positive: ENT inspection nml Neck: positive: Nml inspection Respiratory: positive: No respiratory distress. negative: Wheezes, Rales Cardiovascular: positive: Regular rate & rhythm, No murmur. negative: Tac hycardia Abdomen: positive: Tenderness (Mild tenderness in the right upper quadrant.), Other (Prior surgical incision noted over the lower abdomen.). negative: No distention Skin: positive: Warm, Dry Extremities: positive: Pedal edema (She has about +2 pitting edema in her bilateral lower extremities up to her abdomen.) Neurologic/Psychiatric: negative: Disoriented to person, Disoriented to place Conclusion/Plan - Problem List (1) Acute blood loss anemia Conclusion/Plan: Her hemoglobin has progressively been declining since August and has even dropped 1 g over the past few days. Her stool is heme positive so suspect a GI bleed. CT of the abdomen pelvis revealed no obvious hemorrhage. We will place her in observation for trending of her hemoglobin and endoscopy. We will transfuse for goal hemoglobin greater than 7. We will place her on Protonix 40 mg IV twice daily. General surgery has been contacted and appreciate their input. N.p.o. for EGD. (2) Heme positive stool Conclusion/Plan: Her stool is heme positive and I suspect this is the cause of her acute anemia. Plan as mentioned above with endoscopy and Protonix IV. (3) Uterine sarcoma Conclusion/Plan: She has metastatic uterine sarcoma and was on Votrient up until 1 week ago due to her lower extremity edema. Repeat CT abdomen pelvis will need to be compared to imaging she had last week but does reveal significant metastatic disease. She is being seen by Alda Fleming of palliative care. She will continue outpatient follow-up on discharge. Her oncologist is Dr. Angela Reid. (4) Hepatocellular carcinoma Conclusion/Plan: She has known stage IV hepatocellular carcinoma for which she [facility] with [facility]. She had undergone ablation in the past. She will continue outpatient follow-up on discharge. (5) Lower extremity edema Conclusion/Plan: This has progressed over the past 2 weeks. Initially felt were secondary to have her Votrient but despite discontinue this, her edema has progressed. She is on amlodipine which she has been on for many years but this could be a contributing factor to her edema as well. Her BNP is only mildly elevated and x-ray does not reveal vascular congestion so doubt heart failure but will order an echo to evaluate this. We will also order duplex to evaluate for DVT. I do wonder there could be some IVC compression from her malignancy contributing to her lower extremity edema. (6) Hypertension Conclusion/Plan: Her blood pressure is well controlled. We will continue her home angiotensin receptor jocelyn and thiazide. We will hold the amlodipine given lower extremity edema. We will consider increasing the thiazide. (7) Type 2 diabetes mellitus Conclusion/Plan: Stable. We will hold her home Januvia and place her on sliding scale. N.p.o. for endoscopy but we will place her on carb controlled diet once taking p.o. - Lab Results Lab results reviewed: Yes Fish Bones: 10/18/20 18:11 10/18/20 18:11 - Diagnostic Imaging Results Diagnostic Imaging Results: positive: Prelim report reviewed Core Measures - Anticipated LOS I expect patient to be DC'd or transferred within 96 hours.: Yes - Issues Hospital Issues and Management Plan: 70-year-old female with a past medical history for metastatic uterine sarcoma and hepatocellular carcinoma with lung metastasis presents with worsening lower extremity edema found to have anemia and stool that is heme positive. Will place in observation for monitoring her hemoglobin and EGD. - DVT/VTE - Prophylaxis VTE/DVT Device ordered at admit?: Yes VTE/DVT Prophylaxis med ordered at admit?: No Not Ordered - Medical Reason: Contraindicated
[2020-10-19 05:26] LABS: BASOPHILS % (AUTO) 0.7 %; EOSINOPHILS # (AUTO) 0.2 10^3/uL (0.0-0.7); EOSINOPHILS % (AUTO) 2.9 %; HCT - HEMATOCRIT 20.4 % (37.0-47.0); LYMPHOCYTES # (AUTO) 0.9 10^3/uL (1.5-3.5); LYMPHOCYTES % (AUTO) 15.9 %; MEAN CORPUSCULAR HEMOGLOBIN 39.5 pg (27.0-31.0); MEAN CORPUSCULAR HGB CONC 34.3 g/dL (32.0-36.0); MEAN CORPUSCULAR VOLUME 115.3 fL (81.0-99.0); MONOCYTES # (AUTO) 0.9 10^3/uL (0.0-1.0); NEUTROPHILS # (AUTO) 3.5 10^3/uL (1.5-6.6); NEUTROPHILS % (AUTO) 63.3 %; PLT - PLATELET COUNT 125 10^3/uL (130-450); RED BLOOD COUNT 1.77 10^6/uL (4.20-5.40); RED CELL DISTRIBUTION WIDTH 17.2 % (12.0-15.0); WHITE BLOOD COUNT 5.5 x10^3/uL (4.8-10.8)
[2020-10-19 05:28] LABS: SLIDE REVIEW? Indicated
[2020-10-19 05:46] LABS: PLATELET ESTIMATE, MANUAL DECREASED (<130,000) (NORMAL); PLATELET MORPHOLOGY NORMAL APPEARANCE (NORMAL); WBC MORPHOLOGY (MULTIPLE) NORMAL APPEARANCE (NORMAL)
[2020-10-19 05:50] LABS: CALCIUM 7.8 mg/dL (8.5-10.3); MAGNESIUM 1.7 mg/dL (1.7-2.8); POTASSIUM 3.3 mmol/L (3.5-5.0)
[2020-10-19 05:59] LABS: FERRITIN 406.3 ng/mL (11.0-306.8)
[2020-10-19] MEDS: INSULIN REGULAR HUMAN 300 UNIT/3 ML VIAL SUBQ SCH ×3 (06:01→18:20)
[2020-10-19] MEDS ORDERED: POTASSIUM CHLORIDE 20 MEQ TABLET PO ONE (06:53)
--- NOTE | 2020-10-19 07:10 | Ultrasound Report ---
PROCEDURE: Duplex Ext Veins Bilateral INDICATIONS: DANIEL YOUGEMA TECHNIQUE: Real-time imaging, as well as color and pulse Doppler interrogation, were performed of the deep veins of both legs from the inguinal ligament to the popliteal fossa. COMPARISON: None FINDINGS: The deep veins of the right left lower extremities are normally compressible, and free of intraluminal thrombus. Color and pulse Doppler demonstrate normal phasic intravascular flow in the d eep veins of the right and left lower extremities. There is normal augmentation response to distal c ompression maneuver in the deep veins of the right and left lower extremities.. IMPRESSION: No evidence of deep vein thrombosis involving either the right or left lower extremities. Reviewed by: Gricel Lindo MD, PhD on 10/19/2020 7:09 AM PDT Approved by: Gricel Lindo MD, PhD on 10/19/2020 7:09 AM PDT Station ID: [id number]
[2020-10-19] MEDS ORDERED: POTASSIUM CHLOR 10 MEQ/100 ML 10 MEQ/100 ML BAG IV ONE (07:46)
[2020-10-19] MEDS ORDERED: MAGNESIUM SULFATE 2 GRAM 2 GM/50 ML BAG IV ONE (08:00)
--- NOTE | 2020-10-19 08:26 | CT Report ---
PROCEDURE: Abdomen/Pelvis W INDICATIONS: abdominal distension, anemia CONTRAST: IV CONTRAST: Isovue 300 ml: 80 PO CONTRAST: *NO PO CONTRAST TECHNIQUE: After the administration of contrast, 5 mm thick sections acquired from the diaphragms to the sym physis. 5 mm thick coronal and sagittal reformats were acquired. For radiation dose reduction, the following was used: automated exposure control, adjustment of mA and/or kV according to patient size . COMPARISON: MRI dated 11/21/2016. FINDINGS: Image quality: Excellent. ABDOMEN: Lung bases: Multiple bilateral lower lung masses are present, largest of which is in the left posteri or lung base measuring 30 mm diameter.. Heart size is normal. Solid organs: Partial hepatectomy involving the right hepatic lobe laterally has been performed. Mult iple hepatic masses within the posterior aspect of the right hepatic lobe as well as the left hepatic lobe are present. Largest of these is within the left hepatic lobe and is partially exophytic, measu ring roughly 80 mm diameter. Gallbladder is surgically absent Biliary system is non dilated. Pancre as enhances normally. Right adrenal is not seen. There is a multilobular left adrenal mass measuring roughly 40 mm diameter which may represent multiple venous collateral vessels.. Kidneys demonstrate n ormal size and enhancement, without hydronephrosis. Peritoneum and bowel: Moderate hiatal hernia. Bowel loops demonstrate normal wall thickness and calib er. Small amount of ascites. Multiple sites of peritoneal nodularity. Nodes and vessels: No retroper itoneal or mesenteric adenopathy by size criteria. Aorta and inferior vena cava are normal in size. Miscellaneous: No ventral hernias. There is moderate diffuse subcutaneous fat stranding. PELVIS: Genitourinary: Bladder wall thickness is normal. Miscellaneous: No inguinal hernias or adenopathy. There is a multilobular mass within the left remi pelvis, measuring roughly 14 cm anteroposterior by 6.7 cm transverse. Bones: No suspicious bony lesions. No vertebral body compression fractures. IMPRESSION: 1. Multiple pulmonary metastases. 2. Multiple hepatic metastases. 3. Peritoneal carcinomatosis with ascites. 4. Left adrenal mass versus portosystemic collateral vessels. 5. Large left pelvic mass, possibly representing a uterine or ovarian malignancy. 6. Hiatal hernia. 7. Anasarca. 8. Concordant with pulmonary interpretation. Reviewed by: Rossana Martino MD on 10/19/2020 8:25 AM PDT Approved by: Rossana Martino MD on 10/19/2020 8:25 AM PDT Station ID: [id number]
--- NOTE | 2020-10-19 08:31 | CT Report ---
PROCEDURE: ANGIO CHEST W/WO INDICATIONS: elevated d-dimer, soa CONTRAST: IV CONTRAST: Isovue 300 ml: 80 PO CONTRAST: *NO PO CONTRAST TECHNIQUE: After the administration of intravenous contrast, 2 mm thick sections acquired from the pulmonary api cait to the posterior costophrenic angles. 3-dimensional maximum intensity projection (MIP) coronal a nd sagittal reformats were then acquired through the thorax. For radiation dose reduction, the follow ing was used: automated exposure control, adjustment of mA and/or kV according to patient size. COMPARISON: 10/07/2016 FINDINGS: Image quality: Excellent. Pulmonary arteries: Pulmonary arteries are normal in size, and demonstrate no intraluminal filling d efects to suggest central pulmonary embolism. Lungs and pleura: Multiple bilateral lung nodules with irregular margins are noted which range in siz e from 0.4-2.7 cm. Most compatible with metastatic disease No pleural effusions or pneumothorax. Estrellita tral and peripheral airways are patent. Mediastinum: Heart size is normal, without pericardial effusion. Cardiac RV/LV ratio is normal. Athe rosclerotic calcifications noted in the aorta, great vessels and coronary vasculature. No mediastina l or hilar adenopathy. Thoracic aorta is normal in caliber and enhancement. Esophagus is normal in caliber. Small hiatal hernia is noted. Bones and chest wall: Right chest wall Port-A-Cath. No suspicious bony lesions. Ribs and thoracic s pine appear intact throughout. The thyroid is normal. No axillary or supraclavicular adenopathy. Abdomen: Heterogeneously enhancing masses noted in the liver compatible with metastatic disease. Post surgical changes noted in the right lobe of the liver. Moderate amount of scattered ascites noted in the upper abdomen. IMPRESSION: 1. No pulmonary embolus. 2. Multiple bilateral pulmonary nodules compatible with metastatic disease. 3. Multiple large heterogeneously enhancing hepatic masses most compatible with metastatic disease. Reviewed by: Gricel Lindo MD, PhD on 10/19/2020 8:30 AM PDT Approved by: Gricel Lindo MD, PhD on 10/19/2020 8:30 AM PDT Station ID: [id number]
[2020-10-19] MEDS: PANTOPRAZOLE 40 MG VIAL IVP SCH ×2 (09:46→21:21)
[2020-10-19] MEDS: SODIUM CHLORIDE FLUSH 0.9% 10 ML SYRINGE IVP SCH ×2 (09:46→16:18)
--- NOTE | 2020-10-19 11:43 | PHARMACY PROGRESS NOTE ---
- Best Possible Medication History Admit Date and Time: 10/19/20 0143 Processed by: Pharmacy Medication History completed: Yes Patient Interview: Completed Secondary Source(s): Physician records, Pharmacy records, Insurance records (PATIENT INTERVIEWED BY PHARMACY. PATIENT'S SPOUSE ABLE TO CONFIRM HOME MEDICATION ) As the person ultimately responsible for medication therapy, providers are able to order a medication from an existing home medication list in [facility] via the "Reconcile Routine" prior to Confirmation of that medication by it support analyst. Such practice is discouraged except when the physician, in their clinical judgment, deems that a medical need exists for a medication without regard to previous use.
--- NOTE | 2020-10-19 12:14 | SURGERY HX AND PHYSICAL(T) ---
Surgical History & Physical - Chief Complaint/HPI Chief Complaint: Blood loss anemia History of Present Illness: 70-year-old female presenting for acute blood loss anemia presumptive gastrointestinal. Lethargy weakness. Patient notable for gynecologic malignancy for which he underwent ISABEL/BSO and is pending chemotherapy. She has history of hepatocellular carcinoma status post hepatectomy. No significant family history. Notable past surgical history to include liver resection and gynecologic surgery. Patient denies change in bowel function, denies bleeding per rectum, and also denies reflux associated symptoms. Patient does not use tobacco. Patient has a history of alcohol use but denies any associated abuse. No history of heart attack or stroke. Patient takes no systemic anticoagulation. Endoscopic history includes no prior colonoscopy she had undergone Cologuard which was reportedly negative. - PMH/PSH/Social Hx Does the pt have a hx of MRSA?: No Cardiovascular: Hypertension, High cholesterol Respiratory: None Skin: None Endocrine/Autoimmune: Type 2 diabetes Gastrointestinal: Other (History of hepatocellular carcinoma.) [employer]: Uterine cancer (Sarcoma), Breast cancer Urinary: None Musculoskeletal: None Psychiatric: None General: Liver surgery Eyes Ears Nose Throat (EENT): Cataracts Smoking Status: Never smoker Does the pt drink ETOH?: No Does the pt have substance abuse?: No - Home Meds and Allergies Home Medications: Sitagliptin Phosphate [Januvia] 50 mg PO DAILY 07/01/20 Pazopanib HCl [Votrient] 400 mg PO DAILY 08/14/20 Senna [Senokot] 1 - 2 tab PO DAILY PRN 08/14/20 Simethicone [Gas Relief] 1 tab PO QID PRN 08/14/20 polyethylene glycoL 3350 [Miralax] 17 gm PO DAILY PRN 08/14/20 Potassium Chloride 10 meq PO BID 09/15/20 Acetaminophen [Tylenol] 325 - 650 ng PO Q6HR PRN MDD 2000 MG 10/12/20 Albuterol Sulfate [Albuterol Sulfate Hfa] 2 puffs IH QID PRN 10/19/20 Allergies/Adverse Reactions: Allergies Allergy/AdvReac Type Severity Reaction Status Date / Time erythromycin base Allergy Severe Hives Verified 10/18/20 16:24 [Erythromycin Base] Iodinated Contrast Media Allergy Unknown Verified 10/19/20 08:01 Iodine and Iodide Containing Allergy Unknown Verified 10/19/20 06:55 Produc azithromycin AdvReac Dizziness Verified 10/18/20 16:24 - Review of Systems Constitutional: Fatigue, Weakness - Vital Signs Heart Rate: 87 Blood Pressure: 116/49 Temperature: 37.5 C Respiratory Rate: 18 O2 Saturation: 95 Weight (kg): 54 kg Height: 1.5 m - Physical Exam Comments/Other: General Appearance: positive: No acute distress Eyes Bilateral: positive: Normal inspection ENT: positive: ENT inspection nml Neck: positive: Nml inspection Respiratory: positive: Chest non-tender, No respiratory distress, Breath sounds nml. negative: Wheezes, Rales, Rhonchi Cardiovascular: positive: Regular rate & rhythm Abdomen: positive: No distention, Other. negative: Guarding, Rebound Extremities: positive: Non-tender, Full ROM, Nml appearance Neurologic/Psychiatric: positive: Oriented x3, CN's nml (2-12) - Patient Review Patient Review: Problems were reviewed with the patient during this visit. Medications were reviewed with the patient during this visit. Allergies were reviewed this patient during this visit. Pertinent Tests Reviewed: All pertitent test for this patient were reviewed. - Assessment & Plan Assessment and Plan: Gastrointestinal bleeding suspected in setting of acute blood loss anemia. We will proceed with esophagogastroduodenoscopy. This to include random biopsies of the duodenum, stomach, GE junction as well as other necessary biopsies to rule out amongst other celiac sprue, gastritis/gastropathy, reflux as well as Dailey's, together with H. pylori. Risk and benefits discussed, the former include amongst others bleeding, infection, perforation, need for further procedures/surgery, missed lesions, as well as anesthetic complications of heart attack, stroke, pulmonary embolism and . Before any definitive interventions will proceed with this first. Please note that voice recognition software was used to transcribe this note and inadvertent errors might persist in spite of review and editing. I am obliged to you for your attention. I am thankful to you for allowing me to participate with you in this care of this patient. 1. Admit to med/surg, with hospitalist service 2. Continue resuscitation and transfusion as necessary 3. We will proceed with esophagogastro duodenoscopy 4. If no evidence of upper GI source, will consider colonoscopy once bowel prep completed 5. Aggressive resuscitation 6. Bowel rest 7. PPI and consider Carafate pending results
--- NOTE | 2020-10-19 12:45 | ANESTHESIA ---
Pre-Anesthesia VS, & Labs - Diagnosis anemia, upper GI bleed - Procedure EGD Vital Signs: Temp Pulse Resp BP Pulse Ox 37.6 C 85 16 114/53 L 96 10/19/20 12:20 10/19/20 12:20 10/19/20 12:20 10/19/20 12:20 10/19/20 12:20 Height: 4 ft 11 in Weight (kg): 54 kg Body Mass Index: 24.0 BMI Classification: Healthy weight - NPO >8 hours - Is Patient ?: No - Lab Results Current Lab Results: Laboratory Tests 10/19/20 10:55: POC Whole Bld Glucose 88 10/19/20 05:31: Sodium 134 L, Potassium 3.3 L, Chloride 105, Carbon Dioxide 22, Anion Gap 7.0, BUN 21 H, Creatinine 1.0, Estimated GFR (MDRD) 55 L, Glucose 156 H, Calcium 7.8 L, Magnesium 1.7, Iron 25 L, TIBC 134 L, % Saturation 19 L, Transferrin 96 L 10/19/20 05:07: Ferritin 406.3 H, Vitamin B12 592 10/19/20 05:07: WBC 5.5, RBC 1.77 L, Hgb 7.0 L*, Hct 20.4 L, MCV 115.3 H, MCH 39.5 H, MCHC 34.3, RDW 17.2 H, Plt Count 125 L, MPV 10.0, Neut # (Auto) 3.5, Lymph # (Auto) 0.9 L, [place] # (Auto) 0.9, Eos # (Auto) 0.2, Baso # (Auto) 0.0, Absolute Nucleated RBC 0.00, Nucleated RBC % 0.0, Manual Slide Review Indicated, WBC Morphology NORMAL APPEARANCE, Platelet Estimate DECREASED (<130,000), Platelet Morphology NORMAL APPEARANCE, RBC Morph Micro Appear 1+ ANISOCYTOSIS 10/19/20 05:07: Blood Type Recheck O POSITIVE 10/18/20 22:55: Blood Type O POSITIVE, Antibody Screen NEGATIVE, Crossmatch IS Only See Detail 10/18/20 19:24: VBG pH 7.395, VBG pCO2 37.0 L, VBG pO2 27.5, VBG HCO3 22.1 L, VBG Total CO2 23.3 L, VBG O2 Saturation 48.1 L, VBG Base Excess -2.4 L 10/18/20 18:11: PT 12.6, INR 1.1, APTT 31.7 10/18/20 18:11: D-Dimer > 1050.0 H 10/18/20 18:11: B-Natriuretic Peptide 128 H 10/18/20 18:11: Sodium 133 L, Potassium 3.5, Chloride 102, Carbon Dioxide 21, Anion Gap 10.0, BUN 23 H, Creatinine 1.2 H, Estimated GFR (MDRD) 44 L, Glucose 136 H, Calcium 8.2 L, Phosphorus 3.2, Magnesium 1.8, Total Bilirubin 1.0, AST 31, ALT 18, Alkaline Phosphatase 57, Total Protein 5.7 L, Albumin 2.3 L, Globulin 3.4, Albumin/Globulin Ratio 0.7 L 10/18/20 18:11: WBC 6.4, RBC 2.00 L, Hgb 7.9 L, Hct 23.3 L, MCV 116.5 H, MCH 39.5 H, MCHC 33.9, RDW 17.8 H, Plt Count 142, MPV 10.5, Neut # (Auto) 4.3, Lymph # (Auto) 1.0 L, [place] # (Auto) 0.9, Eos # (Auto) 0.2, Baso # (Auto) 0.0, Absolute Nucleated RBC 0.00, Nucleated RBC % 0.0, Manual Slide Review Indicated, Platelet Estimate NORMAL (130-450,000), Platelet Morphology NORMAL APPEARANCE, RBC Morph Micro Appear 2+ POIKILOCYTOSIS Lab results reviewed: Yes Fish Bones: 10/19/20 05:07 10/19/20 05:31 Home Medications and Allergies Home Medications: Ambulatory Orders Albuterol Sulfate [Albuterol Sulfate Hfa] 2 puffs IH QID PRN 10/19/20 Active Medications Acetaminophen (Acetaminophen 325 Mg Tablet) 650 mg PO Q4HR PRN PRN Reason: Pain 1 to 4 Potassium Chloride/Dextrose/Sod Cl (D5.45ns W/20 Meq Kcl) 1,000 mls @ 83.333 mls/hr IV .Q12H RONNIE Insulin Human Regular (Insulin Regular Human 300 Unit/3 Ml Vial) 1 - 5 unit SUBQ Q6HR RONNIE; Protocol Last Admin: 10/19/20 11:08 Dose: Not Given Documented by: Ondansetron HCl (Ondansetron 4 Mg/2 Ml Vial) 4 mg IVP Q6HR PRN PRN Reason: Nausea / Vomiting Pantoprazole Sodium (Pantoprazole 40 Mg Vial) 40 mg IVP BID [facility] Last Admin: 10/19/20 09:46 Dose: 40 mg Documented by: Sodium Chloride (Sodium Chloride Flush 0.9% 10 Ml Syringe) 10 ml IVP PRN PRN PRN Reason: NEEDED PER PROVIDER ORDERS Sodium Chloride (Sodium Chloride Flush 0.9% 10 Ml Syringe) 10 ml IVP 0100,0900,1700 [facility] Last Admin: 10/19/20 09:46 Dose: 10 ml Documented by: Sitagliptin Phosphate [Januvia] 50 mg PO DAILY 07/01/20 Pazopanib HCl [Votrient] 400 mg PO DAILY 08/14/20 Senna [Senokot] 1 - 2 tab PO DAILY PRN 08/14/20 Simethicone [Gas Relief] 1 tab PO QID PRN 08/14/20 polyethylene glycoL 3350 [Miralax] 17 gm PO DAILY PRN 08/14/20 Potassium Chloride 10 meq PO BID 09/15/20 Acetaminophen [Tylenol] 325 - 650 ng PO Q6HR PRN MDD 2000 MG 10/12/20 Albuterol Sulfate [Albuterol Sulfate Hfa] 2 puffs IH QID PRN 10/19/20 Allergies/Adverse Reactions: Allergies Allergy/AdvReac Type Severity Reaction Status Date / Time erythromycin base Allergy Severe Hives Verified 10/18/20 16:24 [Erythromycin Base] Iodinated Contrast Media Allergy Unknown Verified 10/19/20 08:01 Iodine and Iodide Containing Allergy Unknown Verified 10/19/20 06:55 Produc azithromycin AdvReac Dizziness Verified 10/18/20 16:24 Anes History & Medical History - Anesthetic History Anesthesia Complications: reports: No previous complications Family history of Anesthesia Complications: Denies Family history of Malignant Hyperthermia: Denies - Medical History Cardiovascular: reports: Hypertension, High cholesterol Pulmonary: reports: None Gastrointestinal: reports: Other (History of hepatocellular carcinoma.) Urinary: reports: None Musculoskeletal: reports: None Endocrine/Autoimmune: reports: Type 2 diabetes Skin: reports: None Smoking Status: Never smoker - Surgical History General: reports: Liver surgery Eyes Ears Nose Throat (EENT): reports: Cataracts Gynecologic: reports: Hysterectomy, Oophrectomy, Mastectomy Exam General: Alert, Oriented x3, Cooperative Dental: Dentures full Upper, Dentures full Lower Mouth Openin Fingerbreadth Neck Mobility: Normal Mallampati classification: II Thyromental Distance: 4-6 cm Respiratory: Lungs clear, Normal breath sounds, No respiratory distress Cardiovascular: Regular rate Neurological: Normal speech Mental/Cognitive Status: Alert/Oriented X3, Normal for patient Cognitive Status: Within normal limits Plan Anesthesia Type: Total IV Consent for Procedure(s) Verified and Reviewed: Yes Code Status: Attempt Resuscitation ASA classification: 2-Mild systemic disease Is this case an emergency?: Yes
[2020-10-19] MEDS: D5.45NS W/20 MEQ KCL 1,000 ML IV SCH ×2 (13:25→22:52)
[2020-10-19] MEDS ORDERED: LIDO GARGLE 30 ML BOTTLE ONE (14:26)
[2020-10-19] MEDS ORDERED: MIDAZOLAM 2 MG/2 ML VIAL ONE (14:27)
[2020-10-19] MEDS ORDERED: LIDOCAINE-MPF 2% 5 ML VIAL ONE (14:28)
[2020-10-19] MEDS ORDERED: DEXTROSE 5% 500 ML IV ONE (15:05)
[2020-10-19] MEDS ORDERED: ATROPINE ABBOJECT 1 MG/10 ML SYRINGE IVP PRN (15:14)
[2020-10-19] MEDS ORDERED: HYDROmorphone 0.5 MG/0.5 ML SYRINGE IVP PRN (15:14)
[2020-10-19] MEDS ORDERED: ePHEDrine 50 MG/ML VIAL IVP PRN (15:14)
[2020-10-19] MEDS ORDERED: fentaNYL 100 MCG/2 ML VIAL IVP PRN (15:14)
[2020-10-19] MEDS ORDERED: METOCLOPRAMIDE 10 MG/2 ML VIAL IVP PRN (15:14)
[2020-10-19] MEDS ORDERED: NALOXONE 0.4 MG/ML VIAL IVP PRN (15:14)
[2020-10-19] MEDS ORDERED: MORPHINE 2 MG/ML CARPUJECT IVP PRN (15:14)
--- NOTE | 2020-10-19 15:30 | PROVIDER PROGRESS NOTE ---
Progress Note 70-year-old female with acute blood loss anemia. Recommend prep for colonoscopy as upper endoscopy was essentially unremarkable. Esophagogastroduodenoscopy findings are as follows: 1. Duodenum normal. No evidence of of duodenitis. Cold forcep biopsy obtained. Hemostatic. 2. Antrum without any antritis. Biopsies obtained cold forceps. Hemostatic. Patent pylorus. 3. Retroflexion with large hiatal hernia. Biopsy GE junction. Bleeding noted clipped. 4. No diffuse gastritis or gastropathy. No polyps. No ulcerations. 5. GE junction with mild inflammatory changes and irregular Z-line. Biopsied see above. 6. Distal esophageal biopsies above the Z-line to rule out metaplasia. Assessment and plan: 70-year-old female with history of hepatocellular carcinoma status post hepatectomy and gynecologic malignancy who presents with acute blood loss anemia. Upper endoscopy was essentially within normal limits. Would recommend colonoscopy following prep tomorrow. Continue with twice daily PPI and Carafate. Bowel rest. Transfuse as necessary.
[2020-10-19] MEDS ORDERED: LACTATED RINGERS 1,000 ML IV SCH (16:00)
[2020-10-19 16:11] LABS: HCT - HEMATOCRIT 23.7 % (37.0-47.0); HGB - HEMOGLOBIN 8.3 g/dL (12.0-16.0); MEAN CORPUSCULAR VOLUME 111.3 fL (81.0-99.0); MEAN PLATELET VOLUME 9.6 fL (7.9-10.8); RED BLOOD COUNT 2.13 10^6/uL (4.20-5.40); RED CELL DISTRIBUTION WIDTH 18.9 % (12.0-15.0); WHITE BLOOD COUNT 5.3 x10^3/uL (4.8-10.8)
[2020-10-19] MEDS ORDERED: PROPOFOL 200 MG/20 ML VIAL IVP ONE (16:25)
[2020-10-19] MEDS ORDERED: ACETAMINOPHEN 1,000 MG/100 ML 0 ML IV ONE (16:31)
--- NOTE | 2020-10-19 16:55 | ANESTHESIA POST OP EVALUATION ---
Anesthesia Post Eval - Post Anesthesia Eval Vitals: Last Vital Signs Temp 37.3 C 10/19/20 16:10 Pulse 82 10/19/20 16:31 Resp 18 10/19/20 16:31 BP 113/59 L 10/19/20 16:31 Pulse Ox 94 10/19/20 16:31 CV Function Including HR & BP: Stable Pain Control: Satisfactory Nausea & Vomiting: Negative Mental Status: Baseline Respiratory Status: Airway Patent Hydration Status: Satisfactory Anesthesia Complications: None
[2020-10-19] MEDS ORDERED: ROPIVACAINE 0.5% PF 20 ML AMPULE ONE (17:48)
[2020-10-19] MEDS ORDERED: NEOSTIGMINE 1 MG/1 ML 10 ML MDV ONE (17:54)
[2020-10-19] MEDS ORDERED: GLYCOPYRROLATE 1 MG/5 ML VIAL ONE (17:54)
[2020-10-19] MEDS: SODIUM/POTASSIUM/MAG SULFATES 354 ML PREP KIT PO SCH (19:02)
[2020-10-20] MEDS: INSULIN REGULAR HUMAN 300 UNIT/3 ML VIAL SUBQ SCH ×3 (00:59→12:07)
[2020-10-20] MEDS: SODIUM/POTASSIUM/MAG SULFATES 354 ML PREP KIT PO SCH (05:23)
[2020-10-20] MEDS: SODIUM CHLORIDE FLUSH 0.9% 10 ML SYRINGE IVP SCH ×2 (05:52→08:47)
[2020-10-20 06:06] LABS: BASOPHILS # (AUTO) 0.1 10^3/uL (0.0-0.1); BASOPHILS % (AUTO) 0.8 %; EOSINOPHILS # (AUTO) 0.2 10^3/uL (0.0-0.7); EOSINOPHILS % (AUTO) 2.4 %; HCT - HEMATOCRIT 25.8 % (37.0-47.0); HGB - HEMOGLOBIN 8.7 g/dL (12.0-16.0); LYMPHOCYTES % (AUTO) 15.4 %; MEAN CORPUSCULAR HEMOGLOBIN 37.7 pg (27.0-31.0); MEAN CORPUSCULAR HGB CONC 33.7 g/dL (32.0-36.0); MEAN CORPUSCULAR VOLUME 111.7 fL (81.0-99.0); MEAN PLATELET VOLUME 10.7 fL (7.9-10.8); MONOCYTES % (AUTO) 15.6 %; NEUTROPHILS # (AUTO) 4.1 10^3/uL (1.5-6.6); NEUTROPHILS % (AUTO) 65.5 %; PLT - PLATELET COUNT 145 10^3/uL (130-450); RED BLOOD COUNT 2.31 10^6/uL (4.20-5.40); RED CELL DISTRIBUTION WIDTH 19.2 % (12.0-15.0); WHITE BLOOD COUNT 6.3 x10^3/uL (4.8-10.8)
[2020-10-20 06:09] LABS: SLIDE REVIEW? Indicated
[2020-10-20 06:15] LABS: CALCIUM 7.6 mg/dL (8.5-10.3); MAGNESIUM 2.1 mg/dL (1.7-2.8)
[2020-10-20 07:01] LABS: PLATELET ESTIMATE, MANUAL NORMAL (130-450,000) (NORMAL); PLATELET MORPHOLOGY NORMAL APPEARANCE (NORMAL); RBC MORPHOLOGY (MULTIPLE) 1+ MACROCYTOSIS (NORMAL); WBC MORPHOLOGY (MULTIPLE) NORMAL APPEARANCE (NORMAL)
[2020-10-20] MEDS: PANTOPRAZOLE 40 MG VIAL IVP SCH (08:47)
[2020-10-20] MEDS: D5.45NS W/20 MEQ KCL 1,000 ML IV SCH (10:27)
--- NOTE | 2020-10-20 13:05 | ANESTHESIA ---
Pre-Anesthesia VS, & Labs - Diagnosis anemia - Procedure colonoscopy Vital Signs: Temp Pulse Resp BP Pulse Ox 37.4 C 83 15 130/59 L 96 10/20/20 12:12 10/20/20 12:12 10/20/20 12:12 10/20/20 12:12 10/20/20 12:12 Height: 4 ft 11 in Weight (kg): 54 kg Body Mass Index: 24.0 BMI Classification: Healthy weight - NPO >8 hours - Is Patient ?: No - Lab Results Current Lab Results: Laboratory Tests 10/20/20 11:43: POC Whole Bld Glucose 148 H 10/20/20 05:40: POC Whole Bld Glucose 141 H 10/20/20 05:30: Folate 23.00 10/20/20 05:30: Sodium 135, Potassium 4.0, Chloride 107, Carbon Dioxide 20 L, Anion Gap 8.0, BUN 15, Creatinine 1.0, Estimated GFR (MDRD) 55 L, Glucose 171 H, Calcium 7.6 L, Magnesium 2.1 10/20/20 05:30: WBC 6.3, RBC 2.31 L, Hgb 8.7 L, Hct 25.8 L, MCV 111.7 H, MCH 37.7 H, MCHC 33.7, RDW 19.2 H, Plt Count 145, MPV 10.7, Neut # (Auto) 4.1, Lymph # (Auto) 1.0 L, [place] # (Auto) 1.0, Eos # (Auto) 0.2, Baso # (Auto) 0.1, Absolute Nucleated RBC 0.00, Nucleated RBC % 0.0, Manual Slide Review Indicated, WBC Morphology NORMAL APPEARANCE, Platelet Estimate NORMAL (130-450,000), Platelet Morphology NORMAL APPEARANCE, RBC Morph Micro Appear 1+ MACROCYTOSIS 10/20/20 00:33: POC Whole Bld Glucose 131 H 10/19/20 17:55: POC Whole Bld Glucose 134 H 10/19/20 15:57: WBC 5.3, RBC 2.13 L, Hgb 8.3 L, Hct 23.7 L, MCV 111.3 H, MCH 39.0 H, MCHC 35.0, RDW 18.9 H, Plt Count 123 L, MPV 9.6 10/19/20 10:55: POC Whole Bld Glucose 88 10/19/20 05:31: Sodium 134 L, Potassium 3.3 L, Chloride 105, Carbon Dioxide 22, Anion Gap 7.0, BUN 21 H, Creatinine 1.0, Estimated GFR (MDRD) 55 L, Glucose 156 H, Calcium 7.8 L, Magnesium 1.7, Iron 25 L, TIBC 134 L, % Saturation 19 L, Transferrin 96 L 10/19/20 05:07: Ferritin 406.3 H, Vitamin B12 592 10/19/20 05:07: WBC 5.5, RBC 1.77 L, Hgb 7.0 L*, Hct 20.4 L, MCV 115.3 H, MCH 39.5 H, MCHC 34.3, RDW 17.2 H, Plt Count 125 L, MPV 10.0, Neut # (Auto) 3.5, Lymph # (Auto) 0.9 L, [place] # (Auto) 0.9, Eos # (Auto) 0.2, Baso # (Auto) 0.0, Absolute Nucleated RBC 0.00, Nucleated RBC % 0.0, Manual Slide Review Indicated, WBC Morphology NORMAL APPEARANCE, Platelet Estimate DECREASED (<130,000), Platelet Morphology NORMAL APPEARANCE, RBC Morph Micro Appear 1+ ANISOCYTOSIS 10/19/20 05:07: Blood Type Recheck O POSITIVE 10/18/20 22:55: Blood Type O POSITIVE, Antibody Screen NEGATIVE, Crossmatch IS Only See Detail 10/18/20 19:24: VBG pH 7.395, VBG pCO2 37.0 L, VBG pO2 27.5, VBG HCO3 22.1 L, VBG Total CO2 23.3 L, VBG O2 Saturation 48.1 L, VBG Base Excess -2.4 L 10/18/20 18:11: PT 12.6, INR 1.1, APTT 31.7 10/18/20 18:11: D-Dimer > 1050.0 H 10/18/20 18:11: B-Natriuretic Peptide 128 H 10/18/20 18:11: Sodium 133 L, Potassium 3.5, Chloride 102, Carbon Dioxide 21, Anion Gap 10.0, BUN 23 H, Creatinine 1.2 H, Estimated GFR (MDRD) 44 L, Glucose 136 H, Calcium 8.2 L, Phosphorus 3.2, Magnesium 1.8, Total Bilirubin 1.0, AST 31, ALT 18, Alkaline Phosphatase 57, Total Protein 5.7 L, Albumin 2.3 L, Globulin 3.4, Albumin/Globulin Ratio 0.7 L 10/18/20 18:11: WBC 6.4, RBC 2.00 L, Hgb 7.9 L, Hct 23.3 L, MCV 116.5 H, MCH 39.5 H, MCHC 33.9, RDW 17.8 H, Plt Count 142, MPV 10.5, Neut # (Auto) 4.3, Lymph # (Auto) 1.0 L, [place] # (Auto) 0.9, Eos # (Auto) 0.2, Baso # (Auto) 0.0, Absolute Nucleated RBC 0.00, Nucleated RBC % 0.0, Manual Slide Review Indicated, Platelet Estimate NORMAL (130-450,000), Platelet Morphology NORMAL APPEARANCE, RBC Morph Micro Appear 2+ POIKILOCYTOSIS Lab results reviewed: Yes Fish Bones: 10/20/20 05:30 10/20/20 05:30 Home Medications and Allergies Home Medications: Ambulatory Orders Albuterol Sulfate [Albuterol Sulfate Hfa] 2 puffs IH QID PRN 10/19/20 Active Medications Acetaminophen (Acetaminophen 325 Mg Tablet) 650 mg PO Q4HR PRN PRN Reason: Pain 1 to 4 Heparin Sodium (Beef Lung) (Heparin Flush 50 Units/5 Ml Syringe) 30 - 50 unit IVP PRN PRN PRN Reason: Port Protocol (<24 hours) Potassium Chloride/Dextrose/Sod Cl (D5.45ns W/20 Meq Kcl) 1,000 mls @ 83.333 mls/hr IV .Q12H RONNIE Last Admin: 10/20/20 10:27 Dose: 83.333 mls/hr Documented by: Insulin Human Regular (Insulin Regular Human 300 Unit/3 Ml Vial) 1 - 5 unit SUBQ Q6HR RONNIE; Protocol Last Admin: 10/20/20 12:07 Dose: 1 unit Documented by: Ondansetron HCl (Ondansetron 4 Mg/2 Ml Vial) 4 mg IVP Q6HR PRN PRN Reason: Nausea / Vomiting Pantoprazole Sodium (Pantoprazole 40 Mg Vial) 40 mg IVP BID [facility] Last Admin: 10/20/20 08:47 Dose: 40 mg Documented by: Sodium Chloride (Sodium Chloride Flush 0.9% 10 Ml Syringe) 10 ml IVP PRN PRN PRN Reason: NEEDED PER PROVIDER ORDERS Last Admin: 10/19/20 21:21 Dose: 10 ml Documented by: Sodium Chloride (Sodium Chloride Flush 0.9% 10 Ml Syringe) 10 ml IVP 0100, 0900,1700 RONNIE Last Admin: 10/20/20 08:47 Dose: 10 ml Documented by: Sitagliptin Phosphate [Januvia] 50 mg PO DAILY 07/01/20 Pazopanib HCl [Votrient] 400 mg PO DAILY 08/14/20 Senna [Senokot] 1 - 2 tab PO DAILY PRN 08/14/20 Simethicone [Gas Relief] 1 tab PO QID PRN 08/14/20 polyethylene glycoL 3350 [Miralax] 17 gm PO DAILY PRN 08/14/20 Potassium Chloride 10 meq PO BID 09/15/20 Acetaminophen [Tylenol] 325 - 650 ng PO Q6HR PRN MDD 2000 MG 10/12/20 Albuterol Sulfate [Albuterol Sulfate Hfa] 2 puffs IH QID PRN 10/19/20 Allergies/Adverse Reactions: Allergies Allergy/AdvReac Type Severity Reaction Status Date / Time erythromycin base Allergy Severe Hives Verified 10/18/20 16:24 [Erythromycin Base] Iodinated Contrast Media Allergy Unknown Verified 10/19/20 08:01 Iodine and Iodide Containing Allergy Unknown Verified 10/19/20 06:55 Produc azithromycin AdvReac Dizziness Verified 10/18/20 16:24 Anes History & Medical History - Anesthetic History Anesthesia Complications: reports: Slow wake-up Family history of Anesthesia Complications: Denies Family history of Malignant Hyperthermia: Denies - Medical History Cardiovascular: reports: Hypertension, High cholesterol Pulmonary: reports: None Gastrointestinal: reports: Other (History of hepatocellular carcinoma.) Urinary: reports: None Musculoskeletal: reports: None Endocrine/Autoimmune: reports: Type 2 diabetes Skin: reports: None Smoking Status: Never smoker - Surgical History General: reports: Liver surgery Eyes Ears Nose Throat (EENT): reports: Cataracts Gynecologic: reports: Hysterectomy, Oophrectomy, Mastectomy Exam General: Alert, Oriented x3, Cooperative, No acute distress Dental: Partials Upper, Partials Lower Mouth Openin Fingerbreadth Neck Mobility: Normal Mallampati classification: I Respiratory: Lungs clear, Normal breath sounds, No respiratory distress, No accessory muscle use Cardiovascular: Regular rate, Normal S1, Normal S2, No murmurs Plan Anesthesia Type: General, Total IV Consent for Procedure(s) Verified and Reviewed: Yes Code Status: Attempt Resuscitation ASA classification: 2-Mild systemic disease Is this case an emergency?: Yes
[2020-10-20] MEDS ORDERED: PROPOFOL 200 MG/20 ML VIAL IVP ONE ×2 (14:28→14:54)
--- NOTE | 2020-10-20 14:40 | PROVIDER PROGRESS NOTE ---
Progress Note SUBJECTIVE 70-year-old female with acute blood loss anemia. Esophago-gastroduodenoscopy was essentially unremarkable. Pending colonoscopy. OBJECTIVE General Appearance: positive: No acute distress Eyes Bilateral: positive: Normal inspection ENT: positive: ENT inspection nml Neck: positive: Nml inspection Respiratory: positive: Chest non-tender, No respiratory distress, Breath sounds nml. negative: Wheezes, Rales, Rhonchi Cardiovascular: positive: Regular rate & rhythm Abdomen: positive: No distention, Other. negative: Guarding, Rebound Extremities: positive: Non-tender, Full ROM, Nml appearance Neurologic/Psychiatric: positive: Oriented x3, CN's nml (2-12) Assessment and plan: 70-year-old female with history of hepatocellular carcinoma status post hepatectomy and gynecologic malignancy who presents with acute blood loss anemia. Upper endoscopy was essentially within normal limits. Would recommend colonoscopy patient is status post prep. Colonoscopy indicated for diagnostic. Symptoms are as follows anemia. Risks and benefits discussed at length. Informed consent obtained. Risks include but are not limited to, bleeding, infection, perforation, missed lesions, injury to local structures, need for further surgeries, and the per iprocedural/sedation risks of heart attack stroke and . Patient was advised if any concerning areas were noted these would be sampled if too big to resect or performed for excision if within reasonable limits for endoscopic intervention. Please note that voice recognition software was used to transcribe this note and inadvertent errors might persist in spite of review and editing. I am obliged to you for your attention. I am thankful to you for allowing me to participate with you in this care of this patient. Continue with twice daily PPI and Carafate. Bowel rest. Transfuse as nece ssary.
--- NOTE | 2020-10-20 16:05 | ANESTHESIA POST OP EVALUATION ---
Anesthesia Post Eval - Post Anesthesia Eval Vitals: Last Vital Signs Temp 37.1 C 10/20/20 15:53 Pulse 76 10/20/20 15:53 Resp 24 10/20/20 15:53 BP 131/58 H 10/20/20 15:53 Pulse Ox 95 10/20/20 15:53 CV Function Including HR & BP: Stable Pain Control: Satisfactory Nausea & Vomiting: Negative Mental Status: Baseline Respiratory Status: Airway Patent Hydration Status: Satisfactory Anesthesia Complications: None
--- NOTE | 2020-10-20 16:22 | PROVIDER PROGRESS NOTE ---
Progress Note 70-year-old female with history of hepatocellular carcinoma status post hepatectomy and gynecologic malignancy who presents with acute blood loss anemia. Upper endoscopy was essentially within normal limits. Esophagogastroduodenoscopy findings are as follows: 1. Duodenum normal. No evidence of of duodenitis. Cold forcep biopsy obtained. Hemostatic. 2. Antrum without any antritis. Biopsies obtained cold forceps. Hemostatic. Patent pylorus. 3. Retroflexion with large hiatal hernia. Biopsy GE junction. Bleeding noted clipped. 4. No diffuse gastritis or gastropathy. No polyps. No ulcerations. 5. GE junction with mild inflammatory changes and irregular Z-line. Biopsied see above. 6. Distal esophageal biopsies above the Z-line to rule out metaplasia. Patient underwent colonoscopy today with the following findings: 1. Unable to traverse the rectosigmoid with adult colonoscope secondary to significant tethering and what appears to be malignant infiltration and/or primary colonic malignancy. 2. Multiply biopsied this area. Patient appears to be at least partially obstructed. 3. Attempted to traverse the area of the rectosigmoid with the pediatric colonoscope unsuccessfully. Multiple additional biopsies taken from this area that is clearly the site of the patient's bleeding with ulcerated mass noted. Assessment and plan: Patient with acute on chronic blood loss anemia in the setting of known metastatic malignancy. Appears this has invaded the rectum. This is noted on colonoscopy. Biopsies obtained. Uncertain to what degree this will be responsive to intervention. Palliative chemotherapy and/or radiation can be considered if tumor is chemo or radio sensitive. If the patient is not stable would recommend transfer to her gynecologic oncologist. CT abdomen pelvis impression: 1. Multiple pulmonary metastases. 2. Multiple hepatic metastases. 3. Peritoneal carcinomatosis with ascites 4. Left adrenal mass versus portosystemic collateral vessels. 5. Large left pelvic mass possibly representing a uterine or ovarian malignancy 6. Hiatal hernia 7. Anasarca 8. Concordant with pulmonary interpretation
--- NOTE | 2020-10-20 17:36 | DISCHARGE SUMMARY ---
Discharge Summary Admit Date: 10/19/20 Discharge Date: 10/20/20 Discharging Provider: Patti Block Primary Care Provider: Kim Desai Condition at Discharge: Stable Discharge Disposition: 01 Home, Self Care - DIAGNOSES Admission Diagnoses: Acute blood loss anemia Heme positive stool Uterine sarcoma Hepatocellular carcinoma Lower extremity edema Hypertension Type 2 diabetes mellitus Discharge Diagnoses with Status of Each Condition: Acute blood loss anemia: 2/2 Metastatic malignancy invading rectum and colon. s/p transfusion of 1 unit PRBC. Patient to follow up with Dr Reid her supervisor pipeline/onc Heme positive stool: Pt had colonoscopy which showed metastatic malignancy invading rectum and colon. 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 She states symptoms have been going on for the past 2 weeks. She had a CT of the abdomen pelvis over 1 week ago to monitor her ligament centimeters from what her tells me, it appears things were stable. They called their oncologist at the [facility] regarding the low er extremity edema and is recommended that they stopped over try it as this can be contributing to it. They have stopped this for a week but she still has ongoing lower extremity edema without improvement and so they contacted her oncologist again today who recommend seeing her primary care provider to adjust her antihypertensives. [place] [facility] [place] and noticed that she was quite edematous up to her abdomen and referred the patient to the emergency department. She states she does have a little bit of dyspnea with exertion which has been going on for the past 2 weeks as well. No dyspnea at rest. She denies chest pain, cough, fevers, chills. She will occasionally feel dizzy and lightheaded. She has not noticed any bleeding. Denies dark tarry stools, hematuria. She is not on any antiplatelet or anticoagulation. She reports having an EGD many years ago when she diagnosed with hepatocellular carcinoma which was unremarkable. She is taking amlodipine for her blood pressure which she has been on for quite a few years. She feels like her abdominal distention is increasing and she feels more bloated. In the emergency department, she was found to be afebrile with temperature of 31.2 C. Her heart is in the 80s. Blood pressure was in the 130s systolic. She was not tachypneic and saturating well on room air. Labs were significant for hemoglobin 7.9 with MCV of 116. Her hemoglobin of years ago was 8.9 and in August was 11.7. Her D-dimer is greater than 1050. Her creatinine was 1.2. BNP was 128.Chest x-ray revealed no acute normalities. She underwent a CT angiogram of the chest which showed no pulmonary embolism but did have pulmonary nodules consistent with metastatic disease. CT of the abdomen pelvis was consistent with her prior history of sarcoma with evidence of metastatic disease to the liver, lymphadenopathy and adrenal metastasis. Her stool was heme positive. Given the above findings, medicine was consulted for admission. I did discuss goals of care with the patient and she would like to be a DNR. Patient's hemoglobin at admission was 7.9. Hemoglobin was 11 the previous month (August 2020). In the course of her hospital stay the hemoglobin dropped to 7.0 and she was transfused 1 unit of packed red blood cells. By the time of discharge her hemoglobin was 8.7. She underwent an EGD done which was negative for any ulcers. A colonoscopy was done the following day after bowel prep. It showed metastatic malignancy which appeared to have invaded the rectum. This was the source of the patient's bleeding. Dr. Reid the patient's gynecologic oncologist was contacted by Dr. Will Cabrera of general surgery and myself and informed of the findings. Dr. Reid would schedule a follow-up appointment with her in subsequent days. The patient was also seen by palliative care while in the hospital and they will follow up with her on 10/22/20. I discussed with the patient the findings of the colonoscopy highlighting that she had extensive and advanced malignancy with metastasis. She and her appeared to understand the gravity of her situation. She asked how much time she had left. I was unable to provide this and recommended further discussion with Dr. Reid. I also explained that her lower extremity edema and generalized anasarca was related to her malignancy. She was discharged in a stable condition and will follow up with Dr. Reid when scheduled. - ALLERGIES Allergies/Adverse Reactions: Allergies Allergy/AdvReac Type Severity Reaction Status Date / Time erythromycin base Allergy Severe Hives Verified 10/18/20 16:24 [Erythromycin Base] Iodinated Contrast Media Allergy Unknown Verified 10/19/20 08:01 Iodine and Iodide Containing Allergy Unknown Verified 10/19/20 06:55 Produc azithromycin AdvReac Dizziness Verified 10/18/20 16:24 - MEDICATIONS Home Medications: Ambulatory Orders Medication Instructions Recorded Confirmed Sitagliptin Phosphate [Januvia] 50 mg PO DAILY 07/01/20 10/19/20 Pazopanib HCl [Votrient] 400 mg PO DAILY 08/14/20 10/19/20 Senna [Senokot] 1 - 2 tab PO DAILY PRN 08/14/20 10/19/20 Simethicone [Gas Relief] 1 tab PO QID PRN 08/14/20 10/19/20 polyethylene glycoL 3350 [Miralax] 17 gm PO DAILY PRN 08/14/20 10/19/20 Potassium Chloride 10 meq PO BID 09/15/20 10/19/20 Acetaminophen [Tylenol] 325 - 650 ng PO Q6HR PRN MDD 199910/12/20 10/19/20 MG Albuterol Sulfate [Albuterol 2 puffs IH QID PRN 10/19/20 10/19/20 Sulfate Hfa] - PHYSICAL EXAM AT DISCHARGE General Appearance: positive: No acute distress, Alert Eyes Bilateral: positive: PERRL, EOMI ENT: positive: No signs of dehydration Neck: positive: No JVD, Trachea midline Respiratory: positive: Chest non-tender, No respiratory distress, Breath sounds nml. negative: Wheezes, Rales, Rhonchi Cardiovascular: positive: Regular rate & rhythm, No murmur Abdomen: positive: Non-tender, Other (Distended) Rectal: positive: Stool - heme POS Back: positive: Nml inspection Skin: positive: Color nml, No rash, Warm, Dry Extremities: positive: Non-tender, Pedal edema Neurologic/Psychiatric: positive: Oriented x3, Depressed mood/affect - LABS Result Diagrams: 10/20/20 05:30 10/20/20 05:30 - FOLLOW UP Follow Up: Dr Reid supervisor pipeline-onc as planned She will be seen by palliative care on 10/22/20 Follow up with PCP as needed - TIME SPENT Time Spent in Discharge (Minutes): 20
--- NOTE | 2020-10-20 17:47 | Discharge Plan ---
Discharge Plan Problem Reviewed?: Yes Disposition: Home, Self Care Condition: Stable Diet: Regular Activity Restrictions: Activity as Tolerated Health Concerns: You presented to the ED with complaint of lower extremity edema. However on work-up he was found to have a hemoglobin of 7.9. This was a significant change from a hemoglobin of 11.7 in August. Further work-up included a stool guaiac test which was positive. As a result you underwent bowel prep and had an upper and lower endoscopy done. You had a CT scan done on the day of admission which showed the uterine sarcoma with peritoneal carcinomatosis and ascites, multiple hepatic metastasis and pulmonary metastasis. It is noted that the cancer has spread to the rectum and is the cause of your anemia and blood in stool. Your leg swelling and abdominal distension is as a result of the cancer. Your Hemoglobin further dropped to 7.1 thus you were were transfused 1 unit of packed red blood cells during your hospital stay. At the time of discharge your hemoglobin was 8.7. The findings of the colonoscopy have been discussed with you. Your oncologist Dr. Reid was also contacted. She will arrange a follow-up appointment. Expect a call from her team regarding the date of the appointment. You will also be seen by the palliative care team in the outpatient setting. Plan of Treatment: You presented to the ED with complaint of lower extremity edema. However on work-up he was found to have a hemoglobin of 7.9. This was a significant change from a hemoglobin of 11.7 in August. Further work-up included a stool guaiac test which was positive. As a result you underwent bowel prep and had an upper and lower endoscopy done. You had a CT scan done on the day of admission which showed the uterine sarcoma with peritoneal carcinomatosis and ascites, multiple hepatic metastasis and pulmonary metastasis. It is noted that the cancer has spread to the rectum and is the cause of your anemia and blood in stool. Your leg swelling and abdominal distension is as a result of the cancer. Your Hemoglobin further dropped to 7.1 thus you were were transfused 1 unit of packed red blood cells during your hospital stay. At the time of discharge your hemoglobin was 8.7. The findings of the colonoscopy have been discussed with you. Your oncologist Dr. Reid was also contacted. She will arrange a follow-up appointment. Expect a call from her team regarding the date of the appointment. You will also be seen by the palliative care team in the outpatient setting. Care Goals: You presented to the ED with complaint of lower extremity edema. However on work-up he was found to have a hemoglobin of 7.9. This was a significant change from a hemoglobin of 11.7 in August. Further work-up included a stool guaiac test which was positive. As a result you underwent bowel prep and had an upper and lower endoscopy done. You had a CT scan done on the day of admission which showed the uterine sarcoma with peritoneal carcinomatosis and ascites, multiple hepatic metastasis and pulmonary metastasis. It is noted that the cancer has spread to the rectum and is the cause of your anemia and blood in stool. Your leg swelling and abdominal distension is as a result of the cancer. Your Hemoglobin further dropped to 7.1 thus you were were transfused 1 unit of packed red blood cells during your hospital stay. At the time of discharge your hemoglobin was 8.7. The findings of the colonoscopy have been discussed with you. Your oncologist Dr. Reid was also contacted. She will arrange a follow-up appointment. Expect a call from her team regarding the date of the appointment. You will also be seen by the palliative care team in the outpatient setting. Assessment: You presented to the ED with complaint of lower extremity edema. However on work-up he was found to have a hemoglobin of 7.9. This was a significant change from a hemoglobin of 11.7 in August. Further work-up included a stool guaiac test which was positive. As a result you underwent bowel prep and had an upper and lower endoscopy done. You had a CT scan done on the day of admission which showed the uterine sarcoma with peritoneal carcinomatosis and ascites, multiple hepatic metastasis and pulmonary metastasis. It is noted that the cancer has spread to the rectum and is the cause of your anemia and blood in stool. Your leg swelling and abdominal distension is as a result of the cancer. Your Hemoglobin further dropped to 7.1 thus you were were transfused 1 unit of packed red blood cells during your hospital stay. At the time of discharge your hemoglobin was 8.7. The findings of the colonoscopy have been discussed with you. Your oncologist Dr. Reid was also contacted. She will arrange a follow-up ap pointment. Expect a call from her team regarding the date of the appointment. You will also be seen by the palliative care team in the outpatient setting. No Smoking: If you smoke, Please STOP! Call for help. Follow-up with: AAMIR SHEPHERD MD [Primary Care Provider] -
[2020-10-20 18:03] VITALS: BP 146/69
== END 2020-10-20 18:34 | disposition home or self-care (01) ==
LOC: ED 15:50 → MS2 10-19 01:43
PROVIDERS: ADMIT Internal Medicine; ATTEND Internal Medicine
PROC: 0DB78ZX Excision of Stomach, Pylorus, Via Natural or Artificial Opening Endoscopic, Diagnostic (ICD-10-PCS; 2020-10-19)
PROC: 0DB38ZX Excision of Lower Esophagus, Via Natural or Artificial Opening Endoscopic, Diagnostic (ICD-10-PCS; 2020-10-19)
PROC: 0DB48ZX Excision of Esophagogastric Junction, Via Natural or Artificial Opening Endoscopic, Diagnostic (ICD-10-PCS; 2020-10-19)
PROC: 0DB98ZX Excision of Duodenum, Via Natural or Artificial Opening Endoscopic, Diagnostic (ICD-10-PCS; principal; 2020-10-19 13:00)
PROC: 0DBP8ZX Excision of Rectum, Via Natural or Artificial Opening Endoscopic, Diagnostic (ICD-10-PCS; 2020-10-20)
DX: D62 Acute posthemorrhagic anemia (principal); K62.5 Hemorrhage of anus and rectum; C78.5 Secondary malignant neoplasm of large intestine and rectum; K62.6 Ulcer of anus and rectum; K29.50 Unspecified chronic gastritis without bleeding; K44.9 Diaphragmatic hernia without obstruction or gangrene; C55 Malignant neoplasm of uterus, part unspecified; C78.7 Secondary malignant neoplasm of liver and intrahepatic bile duct; C79.70 Secondary malignant neoplasm of unspecified adrenal gland; C78.02 Secondary malignant neoplasm of left lung; C78.01 Secondary malignant neoplasm of right lung; C78.6 Secondary malignant neoplasm of retroperitoneum and peritoneum; R18.8 Other ascites; I10 Essential (primary) hypertension; E78.00 Pure hypercholesterolemia, unspecified; E11.9 Type 2 diabetes mellitus without complications; R39.15 Urgency of urination; R79.1 Abnormal coagulation profile; Z51.5 Encounter for palliative care; Z20.822 Contact with and (suspected) exposure to COVID-19; Z79.891 Long term (current) use of opiate analgesic; Z79.51 Long term (current) use of inhaled steroids; Z79.899 Other long term (current) drug therapy; Z85.3 Personal history of malignant neoplasm of breast; Z85.05 Personal history of malignant neoplasm of liver; Z90.49 Acquired absence of other specified parts of digestive tract; Z90.710 Acquired absence of both cervix and uterus; Z90.10 Acquired absence of unspecified breast and nipple; Z90.722 Acquired absence of ovaries, bilateral
CPT/HCPCS: 36415; 36430; 43239; 45380; 71275; 74177; 80048; 80053; 82274; 82607; 82728; 82746; 82803; 83540; 83735; 83880; 84100; 84466; 85025; 85027; 85379; 85610; 85730; 86850; 86900; 86901; 86920; 87631; 93005; 93306; 93970; 96365; 96366; 96368; 96375; 96376; 99284; 99285; A9270; G0378; J1815; J3490; P9016; Q9967; 0202U

== ENCOUNTER 2020-10-22 19:42 | Emergency (ER) | payer MEDICARE, OTHER ==
[2020-10-22 20:16] VITALS: BP 152/65
[2020-10-22 20:52] LABS: BILIRUBIN,URINE NEGATIVE (NEGATIVE); GLUCOSE, URINE (UA) NEGATIVE (NEGATIVE); KETONES,URINE (UA) NEGATIVE (NEGATIVE); LEUKOCYTE ESTERASE, URINE NEGATIVE (NEGATIVE); NITRITE,URINE NEGATIVE (NEGATIVE); OCCULT BLOOD,URINE NEGATIVE (NEGATIVE); PROTEIN,URINE 100 mg/dL (NEGATIVE); UROBILINOGEN,URINE 0.2 (NORMAL) E.U./dL (NORMAL)
[2020-10-22 21:11] LABS: BACTERIA,URINE Rare /HPF (None Seen); CLARITY,URINE CLEAR (CLEAR); RBC,URINE None Seen /HPF (0-5); SQUAMOUS EPITHELIAL CELL,UR RARE Squamous (<= Few); WBC,URINE 0-3 /HPF (0-5)
--- NOTE | 2020-10-22 21:15 | ED Physician Documentation ---
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 She was seen earlier in the day by palliative care and they have recommended a catheter as the patient is having some trouble urinating and they were not able to place the catheter. She was directed to the ED for catheter placement. 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 MOLASSES: Hysterectomy, Oophrectomy, Mastectomy HEENT: Cataracts - Present Medications Home Medications: Ambulatory Orders Medication Instructions Recorded Confirmed Sitagliptin Phosphate [Januvia] 50 mg PO DAILY 07/01/20 10/22/20 Pazopanib HCl [Votrient] 400 mg PO DAILY 08/14/20 10/22/20 Senna [Senokot] 1 - 2 tab PO DAILY PRN 08/14/20 10/22/20 Simethicone [Gas Relief] 1 tab PO QID PRN 08/14/20 10/22/20 polyethylene glycoL 3350 [Miralax] 17 gm PO DAILY PRN 08/14/20 10/22/20 Potassium Chloride 10 meq PO BID 09/15/20 10/22/20 Acetaminophen [Tylenol] 325 - 650 ng PO Q6HR PRN MDD 199910/12/20 10/22/20 MG Albuterol Sulfate [Albuterol 2 puffs IH QID PRN 10/19/20 10/22/20 Sulfate Hfa] - Allergies Allergies/Adverse Reactions: Allergies Allergy/AdvReac Type Severity Reaction Status Date / Time erythromycin base Allergy Severe Hives Verified 10/22/20 20:16 [Erythromycin Base] Iodinated Contrast Media Allergy Unknown Verified 10/22/20 20:16 Iodine and Iodide Containing Allergy Unknown Verified 10/22/20 20:16 Produc azithromycin AdvReac Dizziness Verified 10/22/20 20:16 - Social History Does the pt smoke?: No Smoking Status: Never smoker Does the pt drink ETOH?: No Does the pt have substance abuse?: No - Immunizations Immunizations are current?: No - POLST Patient has POLST: Yes PD ED PE NORMAL - Vitals Vital signs reviewed: Yes (hypertensive ) - General General: Alert and oriented X 3, No acute distress, Well developed/nourished - HEENT HEENT: Atraumatic, PERRL, EOMI - Neck Neck: Supple, no meningeal sign - Cardiac Cardiac: RRR, No murmur - Respiratory Respiratory: No respiratory distress, Clear bilaterally - Abdomen Abdomen: Normal bowel sounds, Soft, Non distended, Other (mild generalized tenderness ) - Back Back: No CVA TTP, No spinal TTP - Derm Derm: Normal color, Warm and dry, No rash - Extremities Extremities: No deformity, Normal ROM s pain, No calf tenderness / cord, Other (bilateral edema is trace) - Neuro Neuro: Alert and oriented X 3, slot 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 key 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 2-12 intact, No motor deficit, No sensory deficit, Normal speech Eye Opening: Spontaneous Motor: Obeys Commands Verbal: Oriented GCS Score: 15 - Psych Psych: Normal mood, Other (affect is flat ) Results - Vitals Vitals: Vital Signs - 24 hr 10/22/20 20:05 Temperature 37.2 C Heart Rate 78 Respiratory 18 Rate Blood Pressure 152/65 H O2 Saturation 98 Oxygen O2 Source Room air - Labs Labs: Laboratory Tests 10/22/20 20:44 Urine Color YELLOW Urine Clarity CLEAR Urine pH 6.0 Ur Specific [place] 1.020 Urine Protein 100 H Urine Glucose (UA) NEGATIVE Urine Ketones NEGATIVE Urine Occult Blood NEGATIVE Urine Nitrite NEGATIVE Urine Bilirubin NEGATIVE Urine Urobilinogen 0.2 (NORMAL) Ur Leukocyte Esterase NEGATIVE Urine RBC None Seen Urine WBC 0-3 Ur Squamous Epith Cells RARE Squamous Urine Bacteria Rare Ur Microscopic Review INDICATED Urine Culture Comments NOT INDICATED PD MEDICAL DECISION MAKING - ED course Complexity details: reviewed old records, reviewed results, re-evaluated patient, considered differential, d/w patient, d/w family ED course: 70-year-old female with widespread metastatic cancer has been undergoing chemotherapy and this is failed. She has now developed acute urinary retention feeling that she is unable to urinate and feels this may be related to tumor burden. She is on comfort measures only and they had this discussion today. Here in the emergency department a Hernandez catheter is placed with return of a small amount of urine her bladder was checked following insertion of the Hernandez catheter and the bladder is empty. Urinalysis is unremarkable. Here in the emergency department we have provided palliative care for this unfortunate lady. Departure - Departure Disposition: 01 Home, Self Care Clinical Impression: Acute urinary retention Condition: Stable Instructions: ED Catheter Care David, ED Retention Urinary Female Follow-Up: AAMIR SHEPHERD MD [Primary Care Provider] - Discharge Date/Time: 10/22/20 21:35
== END 2020-10-22 21:35 | disposition home or self-care (01) ==
LOC: ED 19:42
DX: R33.9 Retention of urine, unspecified (principal); C55 Malignant neoplasm of uterus, part unspecified; C22.0 Liver cell carcinoma; C78.00 Secondary malignant neoplasm of unspecified lung
CPT/HCPCS: 51702; 81001; 81003; 87086; 99282; 99283

== ENCOUNTER 2020-10-25 15:00 | Outpatient (CLI) | payer MEDICARE, OTHER ==
--- NOTE | 2020-10-25 17:43 | CONSULTATION NOTE ---
Palliative Care Follow Up - Referral Referring Provider: Dr. 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 She has been having in increasing lower extremity edema, for which she sought out emergent care, she presented to the hospital on 503, was found to have acute blood loss anemia, which resulted in further exploration. Patient did receive a EGD, with only finding of mild inflammatory changes in the GE junction. In follow-up she underwent her colonoscopy on 10/20, they are unable to traverse the rectosigmoid secondary to significant tethering and appeared malignant infiltration with partial obstruction related to her metastatic sarcoma. Patient's goals have always been not to be in the hospital, she was discharged that night, she did have a telehealth with her oncologist on Sunday. She was having obstructive urinary symptoms, she had had a Conti in the hospital. Unable to place one at home, did get 1 placed emergency room with some difficulty. She was without a UTI at that point in time. When called earlier patient complaining of severe pain and burning with any kind of urination. She is having some bladder spasms. They had tried some Azo's for comfort, she has only had 1 dose without any improvement. She had been having temperature spikes over the weekend, fluctuating mostly in the evening, suspect related to tumor burden. She is quite distressed, though we did discuss if remove catheter concern regarding recurrent obstructive symptoms. She has not taken anything for pain including acetaminophen. She did take her oxybutynin over the weekend, has not taken today. She is very clear her goals of care are to focus on spending time with her family, she does understand the seriousness of her illness, her family is appropriately tearful and distressed. On examination, patient does have right lower quadrant tenderness, which is interesting as her CT scan showed left large pelvic mass. She does have lower extremity edema/anasarca up into her pelvic region. She does present with abdominal ascites and distention. She is quite pale, reports increasing weakness, and after much discussion regarding patient's goals, have agreed to transition to hospice for support. Her daughter reports she has passed some bright red blood clots with bowel movements. She is having increased trouble passing stool, reports she did have a bowel movement yesterday. She is at high risk for further obstruction and bleeding. She declined offer for follow-up regarding transfusion. She also has some hemoptysis just after I had left, daughter reported. Past Medical History: Hepatocellular carcinoma originally treated with laparoscopic partial hepatic tach to co and radiofrequency ablation in 2016, recurrent disease in 2019, found at that point time with large uterine mass of 11.6, and received surgery 04/06 which included an exploratory lap, modified radical hysterectomy, BSO, radical right pelvic dissection, tumor cytoreduction, and right utero frozen cystoscopy. She received her first dose of chemo in May 29, with severe side effects and hospitalization. They had a significant distressful hospitalization given the pandemic. She had been discharged with goal to transition to hospice, as she improved, gained weight, got stronger, they did decide to try pazopanib. She actually had tolerated that fairly well for a few months, but then showed progressive disease this last month. Hypertension, hypercholesteremia, diabetes type 2, cirrhosis nonalcoholic fatty liver disease, history of hep B, hepatocellular cancer, history of partial right hepatic ectomy, history of breast cancer treated with left mastectomy and tamoxifen. Social History - Living Situation Living arrangement: At home Living Situation: With spouse/s.o. Support System: She lives with her Neptali, they moved to [facility] from [place] where he was originally stationed. She is originally from the [facility]. Her daughter Ena, has been living with her parents since March with her original surgery, they also have a son in [place], who is coming up to visit this weekend. Medications/Allergies - Medications Home Medications: Ambulatory Orders Medication Instructions Recorded Confirmed Sitagliptin Phosphate [Januvia] 50 mg PO DAILY 07/01/20 10/26/20 Senna [Senokot] 1 - 2 tab PO DAILY PRN 08/14/20 10/26/20 Simethicone [Gas Relief] 1 tab PO QID PRN 08/14/20 10/26/20 polyethylene glycoL 3350 [Miralax] 17 gm PO DAILY PRN 08/14/20 10/26/20 Potassium Chloride 10 meq PO BID MDD patient not 09/15/20 10/26/20 taking Acetaminophen [Tylenol] 325 - 650 ng PO Q6HR PRN MDD 199910/12/20 10/26/20 MG Albuterol Sulfate [Albuterol 2 puffs IH QID PRN 10/19/20 10/26/20 Sulfate Hfa] HYDROmorphone [Dilaudid] 0.5 - 1 tab PO Q4HR PRN 10/26/20 10/26/20 Latanoprost 0.005% Ophth Drops 1 drops EACHEYE DAILY 10/26/20 10/26/20 [Xalatan Ophth Drops] Oxybutynin [Ditropan] 5 mg PO DAILY 10/26/20 10/26/20 - Allergies Allergies/Adverse Reactions: Allergies Allergy/AdvReac Type Severity Reaction Status Date / Time erythromycin base Allergy Severe Hives Verified 10/22/20 20:16 [Erythromycin Base] Iodinated Contrast Media Allergy Unknown Verified 10/22/20 20:16 Iodine and Iodide Containing Allergy Unknown Verified 10/22/20 20:16 Produc azithromycin AdvReac Dizziness Verified 10/22/20 20:16 Review of Systems - Constitutional Constitutional: reports: Fatigue (worsening), Weakness, Weight loss - Ears, Nose & Throat Ears, Nose & Throat: reports: Hearing loss, Dental decay (missing teeth). denies: Mouth lesions (c/o tenderness right buccal area;) - Cardiovascular Cardiovascular: reports: Lightheadedness, Decr. exercise tolerance - Respiratory Respiratory: reports: Hemoptysis (new symptom), SOB with exertion. denies: SOB at rest - Gastrointestinal Gastrointestinal: reports: Abdominal pain (worsening RLQ), Bloating, Poor appetite, Early satiety. denies: Constipation, Nausea - Genitourinary Genitourinary: reports: Dysuria, Other (bladder spasms/UA was negative/conti placed 10/22 in ED) - Musculoskeletal Musculoskeletal: reports: Stiffness, Muscle weakness (more sedentary; ambulatory in house), Other (needing contact assist) - Integumentary Integumentary: reports: Dryness, Hair changes (alopecia from chemo; "dander") - Neurological Neurological: reports: General weakness - Psychiatric Psychiatric: reports: Depression (expressing appropriate sadness/grief of current situation;) - Endocrine Endocrine: reports: Diabetes type 2 (does not check BS) - Hematologic/Lymphatic Hematologic/Lymph: reports: Anemia, Recurrent infections (hx of UTIs; UA obtained at visit and is negative) - All Other Systems All Other Systems: reports: Reviewed and negative Physical Exam - Vital Signs Temperature: 97.6 C Pulse Rate: 72 Respiratory Rate: 16 O2 Saturation: 95 (ra @ rest) Blood Pressure: 112/72 - Physical Exam General Appearance: positive: Alert, Moderate distress (related to pain with catheter), Anxious Eyes Bilateral: positive: Normal inspection Neck: positive: Trachea midline Cardiovascular: positive: Regular rate & rhythm Respiratory: positive: No respiratory distress Abdomen: positive: Soft, Nml bowel sounds, Tenderness, Mass, Distended Skin: positive: Dryness Extremities: positive: Pedal edema (3+ edema up legs/thighs/into sacral area) Neurologic/Psychiatric: positive: Oriented x3, Weakness, Depressed mood/affect, Flat affect Palliative Care - POLST Patient has POLST: Yes POLST Status: DNR, Comfort Measures Pain: Pain worsening, Location (abdominal/catheter/bladder spasms) Tiredness/Fatigue: Severe (7-10) Drowsiness/Sedation: Mild (1-3) Nausea: None Anorexia: Moderate (4-6) Dyspnea: Moderate (4-6) Depression: Moderate (4-6) Anxiety: Severe (7-10) Feelings of wellbeing/Perceived Quality of Life: Poor, Worsening Sleep: Variable sleep pattern Constipation: Yes, Comment (concern related obstruction/bleeding) Performance Status: Patient getting weaker, needs maximum assist getting from sitting to standing, her legs are "very heavy". She does get short of breath with activity, and needing contact assist for ambulation. They do have a commode, but it is difficult to manage her in her current bed, though is not interested in hospital bed. - Palliative Care Discussion: Patient presents with ongoing decline, concern for progressive obstructive symptoms both urethral and bowel. Patient does understand the seriousness of her illness. She has reiterated her previous goals, which are to be home with her family, and not return to the hospital. Patient is deteriorating fairly quickly, and more acutely over the last couple weeks. Her son is coming from [place] this weekend, after discussion regarding their goals, will make hospice referral. Patient is quite resistant to having multiple people in her space, she is introverted and shy. We did discuss in the context of this, can have minimum visits but concerned that family is going to need support to be able to care for her and know how to keep her comfortable. Daughter appropriately tearful, but would appreciate support. has been having difficulty through this whole time, and presents with existential distress and tearfulness. He will be at high risk for bereavement. He has just been quite frustrated with the whole system that we cannot "fix her". And has found layered upon the pandemic, the difficulties with hospitalizations and access. Patient is quite clear she wants a "timeline", her daughter feels this is not helpful, as it becomes her focus and less able to relax into being in the present. Patient though does have clear understanding this is leading to an end-of-life event and fairly soon. Impression and Recommendations - Palliative Care Impression: This is a klaus 70-year-old Somali woman who presents with both metastatic/recurrent hepatocellular carcinoma as well as recurrent uterine sarco ma, and has lung mets. She also has known infiltration into her rectum and colon, with continued symptoms of active bleeding. She presents with worsening anasarca, increasing pain, symptoms of both urethral and colonic obstruction. Patient's goals are to remain home with her family, given this we will transition her to hospice. Palliative care continue to provide support for pain and symptom management until transition complete. Recommendations/Counseling Done: 1. Dysuria. This is multifactorial, suspect related to bladder spasms, worsening ureteral obstructive symptoms, urine is clear but did given multiple attempts for Conti placement, get you a. This was negative, patient was instructed to stop antibiotics ordered. Patient does have oxybutynin, recommen ded continue for pain. Patient would most likely benefit for stronger pain medication, she remains quite resistant. Requested she at least trial some acetaminophen 650 mg up to 3 times daily. They do have hydromorphone in the home. She also has Azo's, she has tried 1 dose, encouraged to try a second to see if improved. With transition to hospice, follow-up with Dr. Reid oncology, recommendation for B&O suppositories, would be able to get this through hospice compounded pharmacy. She is in agreement for transition. 2. Pain of neoplastic origin. This is multifactorial. Patient is quite resistant to consideration of pain medications. She had been "quite loopy on oxycodone" in the hospital. She had to use some hydromorphone, so had agreed to have it in the home. Unclear how accepting patient will be of pain medications, she does have a high pain tolerance. Encouraged at least to start with acetaminophen, as patient transitions hopefully will be more accepting of more aggressive pain management. 3. Partial bowel obstruction. Patient continued to difficulty with bowel movements, encouraged to take MiraLAX more aggressively, did have a bowel movement yesterday. She has having some joni bleeding, discussed possible transfusion for comfort, patient does not want to leave the home. She did express she does not want anything for prolonging her suffering. This is very difficult for her family to accept, but are very supportive of her. 4. Advanced care planning. Patient does have POLST with DN AR and comfort measures. Patient's express goals are not to return to the hospital, they will are going to need some increased support given her high symptom burden. We will need to balance given patient's hesitancy to have outside support, but family will need support and instruction regarding patient's imminent decline. 100 minutes with greater than 50% of this done in counseling regarding clarifying goals of care, providing support and family meeting, coordination of care with oncology and hospice team.
== END 2020-10-25 15:01 | disposition home or self-care (01) ==
LOC: PC 15:00
PROVIDERS: ATTEND Nurse Practitioner Adult Health
DX: Z51.5 Encounter for palliative care (principal); R30.0 Dysuria; G89.3 Neoplasm related pain (acute) (chronic); C55 Malignant neoplasm of uterus, part unspecified; C22.0 Liver cell carcinoma; C78.00 Secondary malignant neoplasm of unspecified lung; C79.9 Secondary malignant neoplasm of unspecified site; K56.600 Partial intestinal obstruction, unspecified as to cause; E11.9 Type 2 diabetes mellitus without complications; R60.1 Generalized edema; Z66 Do not resuscitate
CPT/HCPCS: 99350

== ENCOUNTER 2020-10-25 16:15 | Outpatient (CLI) | payer MEDICARE, OTHER ==
[2020-10-25 17:24] LABS: KETONES,URINE (UA) NEGATIVE (NEGATIVE); LEUKOCYTE ESTERASE, URINE NEGATIVE (NEGATIVE); OCCULT BLOOD,URINE NEGATIVE (NEGATIVE); PH,URINE 5.5 PH (5.0-7.5)
[2020-10-25 17:34] LABS: BILIRUBIN,URINE NEGATIVE (NEGATIVE); CLARITY,URINE CLEAR (CLEAR); ICTOTEST,URINE NEGATIVE
[2020-10-25 17:35] LABS: BACTERIA,URINE Rare /HPF (None Seen); CASTS, URINE 3-5 Hyaline Casts /LPF; RBC,URINE 0-5 /HPF (0-5); SQUAMOUS EPITHELIAL CELL,UR RARE Squamous (<= Few)
== END 2020-10-25 23:59 | disposition home or self-care (01) ==
LOC: LAB.R 16:15
PROVIDERS: ATTEND Nurse Practitioner Adult Health
DX: R30.0 Dysuria (principal)
CPT/HCPCS: 81001; 87086